=== PATIENT | female | born 1960 | race Two or more races ===

== ENCOUNTER 2020-06-15 17:05 | Inpatient (IN) | payer MEDICAID, OTHER ==
[~2020-06-15] VITALS: Ht 149.9 cm; Wt 67.2 kg
[2020-06-15] MEDS ORDERED: DOXYCYCLINE 100MG/250ML 250 ML IV ONE (20:00)
[2020-06-15] MEDS ORDERED: SODIUM CHLORIDE 0.9% 500 ML IV ONE ×2 (20:00)
[2020-06-15] MEDS ORDERED: DexAMETHasone SOD PHOS 10MG/1ML VIAL INJ IV ONE (20:00)
[2020-06-15 21:23] LABS: Basophils # (auto) 0 10 ^3/uL (0-0.2); Basophils % (auto) 0.3 % (0.0-2.0); Eosinophils # (auto) 0.1 10 ^3/uL (0-0.8); Eosinophils % (auto) 1.3 % (0.0-7.0); Hematocrit 31.8 % (36.0-46.0); Hemoglobin 11.2 g/dL (12.2-16.2); Lymphocytes # (auto) 0.6 10 ^3/uL (0.4-5.4); Lymphocytes % (auto) 8.8 % (10.0-50.0); Mean Corpuscular Hemoglobin 37.2 pg (28.0-32.0); Mean Corpuscular Hgb Conc. 35.3 g/dL (32.0-36.0); Mean Corpuscular Volume 105.5 fL (80.0-100.0); Monocytes # (auto) 0.3 10 ^3/uL (0-1.3); Monocytes % (auto) 4.4 % (0.0-12.0); Neutrophils # (auto) 6.1 10 ^3/uL (1.6-8.6); Neutrophils % (auto) 85.2 % (37.0-80.0); Nucleated Red Blood Cells % 0.3 %; Red Blood Cells 3.01 10^6/uL (4.0-5.20); Red Cell Distribution Width 14.6 % (11.8-14.3); White Blood Cell 7.2 10^3/uL (4.4-10.8)
[2020-06-15 21:30] LABS: Albumin 3.2 g/dL (3.4-5.0); Calcium 7.8 mg/dL (8.5-10.1); Potassium 3.7 mmol/L (3.5-5.1)
[2020-06-15 21:33] LABS: BUN/Creatinine Ratio 16.4; Bilirubin, Total 2.3 mg/dL (0.2-1.0); Total Protein 8.2 g/dL (6.4-8.2)
[2020-06-15 22:35] LABS: INR 1.13 (0.9-1.15); Partial Thromboplastin Time 31.7 sec (23.0-31.2)
[2020-06-16] MEDS ORDERED: TEMAZEPAM 15 MG CAP PO PRN (02:30)
[2020-06-16] MEDS ORDERED: MORPHINE SULFATE INJECTION 2 MG/ML SYRG IV PRN (02:30)
[2020-06-16] MEDS ORDERED: ACETAMINOPHEN 500 MG TAB PO PRN (02:30)
[2020-06-16] MEDS ORDERED: NITROGLYCERIN 0.4 MG SL TAB SL PRN (02:30)
[2020-06-16] MEDS ORDERED: ONDANSETRON HCL 4 MG/2 ML VIAL IV PRN (02:30)
[2020-06-16] MEDS ORDERED: SODIUM CHLORIDE 0.9% 1,000 ML IV SCH (02:30)
[2020-06-16] MEDS: DexAMETHasone SOD PHOS 10MG/1ML VIAL INJ IV SCH (09:58)
[2020-06-16] MEDS: ZINC SULFATE 220mg CAP or TAB PO SCH (09:58)
[2020-06-16] MEDS: PANTOPRAZOLE 40 MG TAB PO SCH (09:58)
[2020-06-16] MEDS: ASCORBIC ACID 1,000 MG TAB PO SCH (09:59)
[2020-06-16] MEDS: CHOLECALCIFEROL (VITD3) 2,000 UNIT CAP/TAB PO SCH (09:59)
[2020-06-16] MEDS ORDERED: AZITHROMYCIN 500MG/ 250ML 250 ML IV SCH (10:00)
[2020-06-16] MEDS ORDERED: ENOXAPARIN SOD 40 MG/0.4 ML SYRINGE SC SCH (10:00)
[2020-06-16] MEDS ORDERED: AZITHROMYCIN 500MG/ 250ML 250 ML IV ONE (14:15)
[2020-06-16] MEDS ORDERED: POTASSIUM CHL 10 Meq TABLET PO ONE (14:15)
[2020-06-16] MEDS ORDERED: cefTRIAXone 1GM/50ML D5W 50 ML IV ONE (14:15)
[2020-06-16] MEDS ORDERED: FUROSEMIDE 20 MG/2 ML VIAL IV ONE (14:15)
[2020-06-16] MEDS ORDERED: REMDESIVIR PER PHARMACY 0 ML IV SCH (14:30)
[2020-06-16] MEDS ORDERED: REMDESIVIR 200 MG in NS 210ml LOADING DOSE ADULT IV ONE (17:00)
[2020-06-16] MEDS: ENOXAPARIN SOD 40 MG/0.4 ML SYRINGE SC SCH (22:00)
[2020-06-16 23:22] VITALS: BP 108/59
[2020-06-17 00:52] VITALS: BP 108/59
[2020-06-17] MEDS ORDERED: MULT-1058 PO (03:19)
[2020-06-17 08:00] VITALS: BP 100/55
[2020-06-17 08:53] LABS: Basophils # (auto) 0.1 10 ^3/uL (0-0.2); Eosinophils # (auto) 0 10 ^3/uL (0-0.8); Eosinophils % (auto) 0.1 % (0.0-7.0); Lymphocytes # (auto) 0.7 10 ^3/uL (0.4-5.4); Red Cell Distribution Width 14.9 % (11.8-14.3); White Blood Cell 9.9 10^3/uL (4.4-10.8)
[2020-06-17 08:55] LABS: Basophils % (auto) 0.5 % (0.0-2.0); Hematocrit 29.8 % (36.0-46.0); Lymphocytes % (auto) 6.8 % (10.0-50.0); Mean Corpuscular Hemoglobin 35.9 pg (28.0-32.0); Mean Corpuscular Hgb Conc. 33.7 g/dL (32.0-36.0); Mean Corpuscular Volume 106.4 fL (80.0-100.0); Monocytes # (auto) 0.4 10 ^3/uL (0-1.3); Monocytes % (auto) 4.1 % (0.0-12.0); Neutrophils # (auto) 8.7 10 ^3/uL (1.6-8.6); Neutrophils % (auto) 88.5 % (37.0-80.0)
[2020-06-17] MEDS: ASCORBIC ACID 1,000 MG TAB PO SCH (09:06)
[2020-06-17] MEDS: CHOLECALCIFEROL (VITD3) 2,000 UNIT CAP/TAB PO SCH (09:06)
[2020-06-17] MEDS: ZINC SULFATE 220mg CAP or TAB PO SCH (09:06)
[2020-06-17] MEDS: ENOXAPARIN SOD 40 MG/0.4 ML SYRINGE SC SCH ×2 (09:06→21:57)
[2020-06-17] MEDS: PANTOPRAZOLE 40 MG TAB PO SCH (09:06)
[2020-06-17] MEDS: POTASSIUM CHL 10 Meq TABLET PO SCH (09:07)
[2020-06-17] MEDS: cefTRIAXone 1GM/50ML D5W 50 ML IV SCH (09:07)
[2020-06-17] MEDS: FUROSEMIDE 20 MG/2 ML VIAL IV SCH (09:07)
[2020-06-17] MEDS: DexAMETHasone SOD PHOS 10MG/1ML VIAL INJ IV SCH (09:07)
[2020-06-17 09:27] LABS: Potassium 3.9 mmol/L (3.5-5.1)
[2020-06-17 09:40] LABS: Albumin 2.7 g/dL (3.4-5.0); Bilirubin, Total 1.5 mg/dL (0.2-1.0); Calcium 7.6 mg/dL (8.5-10.1); Magnesium 2.8 mg/dL (1.6-2.6); Total Protein 7.3 g/dL (6.4-8.2)
[2020-06-17] MEDS: AZITHROMYCIN 500MG/ 250ML 250 ML IV SCH (10:08)
[2020-06-17] MEDS: REMDESIVIR 100 MG in SODIUM CHL 0.9% 250 ML IV SCH (15:04)
[2020-06-17 16:00] VITALS: BP 107/65
[2020-06-17] MEDS: CALCIUM CARB 500 MG CHEW TAB PO SCH (17:53)
[2020-06-17] MEDS: ATORVASTATIN 20 MG TAB PO SCH (21:57)
[2020-06-18] VITALS: BP 113/69
[2020-06-18 08:00] VITALS: BP 104/58
[2020-06-18] MEDS: AZITHROMYCIN 500MG/ 250ML 250 ML IV SCH (10:00)
[2020-06-18] MEDS: CALCIUM CARB 500 MG CHEW TAB PO SCH ×3 (10:37→17:24)
[2020-06-18] MEDS: FUROSEMIDE 20 MG/2 ML VIAL IV SCH (10:37)
[2020-06-18] MEDS: cefTRIAXone 1GM/50ML D5W 50 ML IV SCH (10:37)
[2020-06-18] MEDS: DexAMETHasone SOD PHOS 10MG/1ML VIAL INJ IV SCH (10:37)
[2020-06-18] MEDS: ENOXAPARIN SOD 40 MG/0.4 ML SYRINGE SC SCH ×2 (10:38→22:31)
[2020-06-18] MEDS: CHOLECALCIFEROL (VITD3) 2,000 UNIT CAP/TAB PO SCH (10:38)
[2020-06-18] MEDS: ZINC SULFATE 220mg CAP or TAB PO SCH (10:38)
[2020-06-18] MEDS: PANTOPRAZOLE 40 MG TAB PO SCH (10:38)
[2020-06-18] MEDS: ASPirin 81 mg TAB PO SCH (10:38)
[2020-06-18] MEDS: POTASSIUM CHL 10 Meq TABLET PO SCH (10:38)
[2020-06-18] MEDS: ASCORBIC ACID 1,000 MG TAB PO SCH (10:38)
[2020-06-18] MEDS: REMDESIVIR 100 MG in SODIUM CHL 0.9% 250 ML IV SCH (15:37)
[2020-06-18 16:00] VITALS: BP 113/69
[2020-06-18] MEDS: ATORVASTATIN 20 MG TAB PO SCH (22:31)
[2020-06-19] VITALS: BP 114/60
[2020-06-19 08:00] VITALS: BP 125/64
[2020-06-19] MEDS: CALCIUM CARB 500 MG CHEW TAB PO SCH ×3 (08:00→17:07)
[2020-06-19 08:28] LABS: BUN/Creatinine Ratio 22.3; Calcium 7.7 mg/dL (8.5-10.1); Potassium 3.8 mmol/L (3.5-5.1)
[2020-06-19 08:30] LABS: INR 1.26 (0.9-1.15)
[2020-06-19 08:38] LABS: Albumin 2.8 g/dL (3.4-5.0); Bilirubin, Direct 1.1 mg/dL (0-0.2); Bilirubin, Total 1.5 mg/dL (0.2-1.0); Total Protein 7.4 g/dL (6.4-8.2)
[2020-06-19 08:40] LABS: Bilirubin, Total 1.4 mg/dL (0.2-1.0); Total Protein 7.4 g/dL (6.4-8.2)
[2020-06-19] MEDS: ALBUTEROL SULF HFA 90MCG INH 200DOSE IN PRN ×2 (09:01→21:52)
[2020-06-19] MEDS: cefTRIAXone 1GM/50ML D5W 50 ML IV SCH (09:56)
[2020-06-19] MEDS: ZINC SULFATE 220mg CAP or TAB PO SCH (09:56)
[2020-06-19] MEDS: ASPirin 81 mg TAB PO SCH (09:56)
[2020-06-19] MEDS: FUROSEMIDE 20 MG/2 ML VIAL IV SCH (09:56)
[2020-06-19] MEDS: DexAMETHasone SOD PHOS 10MG/1ML VIAL INJ IV SCH (09:56)
[2020-06-19] MEDS: CHOLECALCIFEROL (VITD3) 2,000 UNIT CAP/TAB PO SCH ×2 (09:57→10:00)
[2020-06-19] MEDS: ENOXAPARIN SOD 40 MG/0.4 ML SYRINGE SC SCH ×2 (09:57→22:00)
[2020-06-19] MEDS: PANTOPRAZOLE 40 MG TAB PO SCH (09:57)
[2020-06-19] MEDS: POTASSIUM CHL 10 Meq TABLET PO SCH (09:57)
[2020-06-19] MEDS: ASCORBIC ACID 1,000 MG TAB PO SCH (09:57)
[2020-06-19] MEDS: AZITHROMYCIN 500MG/ 250ML 250 ML IV SCH (11:38)
[2020-06-19] MEDS: REMDESIVIR 100 MG in SODIUM CHL 0.9% 250 ML IV SCH (15:53)
[2020-06-19 16:00] VITALS: BP 115/67
[2020-06-19] MEDS: ATORVASTATIN 20 MG TAB PO SCH (22:00)
[2020-06-20] VITALS: BP 103/64
[2020-06-20] MEDS: ALBUTEROL SULF HFA 90MCG INH 200DOSE IN PRN ×2 (06:16→20:20)
[2020-06-20 07:21] LABS: Basophils # (auto) 0 10 ^3/uL (0-0.2); Basophils % (auto) 0.2 % (0.0-2.0); Eosinophils # (auto) 0 10 ^3/uL (0-0.8); Monocytes # (auto) 0.5 10 ^3/uL (0-1.3); Nucleated Red Blood Cells % 0.2 %; Red Cell Distribution Width 15.1 % (11.8-14.3)
[2020-06-20 07:24] LABS: Hematocrit 32.9 % (36.0-46.0); Hemoglobin 11.2 g/dL (12.2-16.2); Lymphocytes % (auto) 12.3 % (10.0-50.0); Mean Corpuscular Hemoglobin 35.8 pg (28.0-32.0); Mean Corpuscular Hgb Conc. 34.2 g/dL (32.0-36.0); Mean Corpuscular Volume 104.8 fL (80.0-100.0); Monocytes % (auto) 6.3 % (0.0-12.0); Neutrophils # (auto) 6.5 10 ^3/uL (1.6-8.6); Neutrophils % (auto) 81.2 % (37.0-80.0); Red Blood Cells 3.14 10^6/uL (4.0-5.20)
[2020-06-20 08:00] VITALS: BP 121/59
[2020-06-20] MEDS: CALCIUM CARB 500 MG CHEW TAB PO SCH ×3 (08:00→18:00)
[2020-06-20 08:17] LABS: Albumin 3.1 g/dL (3.4-5.0); BUN/Creatinine Ratio 24.8
[2020-06-20 08:20] LABS: Bilirubin, Total 1.2 mg/dL (0.2-1.0); Total Protein 7.3 g/dL (6.4-8.2)
[2020-06-20] MEDS: cefTRIAXone 1GM/50ML D5W 50 ML IV SCH (09:11)
[2020-06-20] MEDS: ZINC SULFATE 220mg CAP or TAB PO SCH (09:26)
[2020-06-20] MEDS: DexAMETHasone SOD PHOS 10MG/1ML VIAL INJ IV SCH (09:26)
[2020-06-20] MEDS: ASPirin 81 mg TAB PO SCH (09:26)
[2020-06-20] MEDS: PANTOPRAZOLE 40 MG TAB PO SCH (09:26)
[2020-06-20] MEDS: ASCORBIC ACID 1,000 MG TAB PO SCH (09:27)
[2020-06-20] MEDS: CHOLECALCIFEROL (VITD3) 2,000 UNIT CAP/TAB PO SCH (09:27)
[2020-06-20] MEDS: POTASSIUM CHL 10 Meq TABLET PO SCH (09:27)
[2020-06-20] MEDS: FUROSEMIDE 20 MG/2 ML VIAL IV SCH (09:29)
[2020-06-20] MEDS: AZITHROMYCIN 500MG/ 250ML 250 ML IV SCH (10:14)
[2020-06-20] MEDS: ENOXAPARIN SOD 40 MG/0.4 ML SYRINGE SC SCH ×2 (12:46→22:22)
[2020-06-20] MEDS ORDERED: BUDE2SUS3 IN (14:31)
[2020-06-20] MEDS ORDERED: ALBUAER3 IN (14:31)
[2020-06-20] MEDS ORDERED: ASCO10003 PO (14:31)
[2020-06-20] MEDS ORDERED: CHOL1CAP47 PO (14:31)
[2020-06-20] MEDS ORDERED: ASPI-378 PO (14:34)
[2020-06-20] MEDS ORDERED: DOXY-286 PO (14:34)
[2020-06-20] MEDS ORDERED: PANT40TA2 PO (14:34)
[2020-06-20] MEDS ORDERED: DEX4T PO (14:34)
[2020-06-20] MEDS ORDERED: ZINC220T6 PO (14:34)
[2020-06-20 16:00] VITALS: BP 110/61
[2020-06-20] MEDS: REMDESIVIR 100 MG in SODIUM CHL 0.9% 250 ML IV SCH (18:00)
[2020-06-21] VITALS: BP 107/63
[2020-06-21] MEDS: CALCIUM CARB 500 MG CHEW TAB PO SCH ×2 (07:58→12:00)
[2020-06-21 08:00] VITALS: BP 117/62
[2020-06-21] MEDS: cefTRIAXone 1GM/50ML D5W 50 ML IV SCH (08:09)
[2020-06-21] MEDS: ASCORBIC ACID 1,000 MG TAB PO SCH (10:00)
[2020-06-21] MEDS: PANTOPRAZOLE 40 MG TAB PO SCH (10:00)
[2020-06-21] MEDS: ZINC SULFATE 220mg CAP or TAB PO SCH (10:00)
[2020-06-21] MEDS: AZITHROMYCIN 500MG/ 250ML 250 ML IV SCH (10:00)
[2020-06-21] MEDS: CHOLECALCIFEROL (VITD3) 2,000 UNIT CAP/TAB PO SCH (10:00)
[2020-06-21] MEDS: DexAMETHasone SOD PHOS 10MG/1ML VIAL INJ IV SCH (10:32)
[2020-06-21] MEDS: FUROSEMIDE 20 MG/2 ML VIAL IV SCH (10:34)
[2020-06-21] MEDS: ASPirin 81 mg TAB PO SCH (10:35)
[2020-06-21] MEDS: ENOXAPARIN SOD 40 MG/0.4 ML SYRINGE SC SCH (10:35)
[2020-06-21] MEDS: POTASSIUM CHL 10 Meq TABLET PO SCH (10:35)
[2020-06-21 16:20] VITALS: BP 105/59
[2020-06-23 10:21] LABS: Hepatitis B Surface Antibody Negative
[2020-06-23 10:47] LABS: Hepatitis A Total Antibody Positive
[2020-06-23 12:21] LABS: Hepatitis B Core Total AB Negative; Hepatitis B Surface Antigen Negative (Negative); Hepatitis C Antibody Negative (Negative)
== END 2020-06-21 17:00 | disposition home or self-care (01) | DRG 720 ==
LOC: ER 17:05 → TELE 17:06 → TELE-WESTW 06-16 23:20
PROVIDERS: ADMIT Nurse Practitioner; ATTEND Internal Medicine
PROC: XW033E5 Introduction of Remdesivir Anti-infective into Peripheral Vein, Percutaneous Approach, New Technology Group 5 (ICD-10-PCS; principal; 2020-06-16)
DX: A41.89 Other specified sepsis (principal); U07.1 COVID-19; J96.01 Acute respiratory failure with hypoxia; N17.0 Acute kidney failure with tubular necrosis; J12.82 Pneumonia due to coronavirus disease 2019; E66.9 Obesity, unspecified; N18.9 Chronic kidney disease, unspecified; D68.69 Other thrombophilia; K74.60 Unspecified cirrhosis of liver; I12.9 Hypertensive chronic kidney disease with stage 1 through stage 4 chronic kidney disease, or unspecified chronic kidney disease; D63.8 Anemia in other chronic diseases classified elsewhere; Z85.3 Personal history of malignant neoplasm of breast; Z90.11 Acquired absence of right breast and nipple; Z68.29 Body mass index [BMI] 29.0-29.9, adult; R74.01 Elevation of levels of liver transaminase levels; E78.5 Hyperlipidemia, unspecified; D89.839 Cytokine release syndrome, grade unspecified
CPT/HCPCS: 36415; 36600; 71045; 76700; 80053; 80076; 82306; 82728; 82805; 83605; 83615; 83735; 84443; 85025; 85379; 85610; 85730; 86141; 86704; 86706; 86708; 86803; 86850; 86900; 86901; 87040; 87340; 87426; 93005; 93970; 94640; 96365; 96366; 96367; 96372; 96375; 97163; G0378; J0696; J1100; J3490

== ENCOUNTER 2024-11-22 19:26 | Inpatient (IN) | payer MEDICAID, MEDICARE ==
[~2024-11-22] VITALS: Ht 147.3 cm; Wt 83.7 kg
[~2024-11-22 19:26] MED LIST: ALBUAER3 IN; ASCO10003 PO; ASPI-378 PO; BUDE2SUS3 IN; CHOL1CAP47 PO; DEX4T PO; DOXY-286 PO; MULT-1058 PO; PANT40TA2 PO; ZINC220T6 PO
--- NOTE | 2024-11-22 20:03 | ED.PDOC ---
History of Present Illness HPI Comments 64 y/o obese F is [id number] and daughter for c/o ALOC. Per daughter, patient is reported to have been found altered, this evening, after last being seen normal at around 1700. She is stated to only be orientated to her person for the past 3 hours prior to arrival. Patient has a history of AOCD, LUBA, HTN, PNA secondary to Covid19, acute hypoxic respiratory failure, liver cirrhosis and breast cancer s/p right mastectomy. She has also been dealing with diarrhea and having poor appetite since yesterday and this morning, respectively. No prior history of similar symptoms or CVA in addition to any current medication use endorsed. Patient has no associated chest pain, shortness of breath, vision or speech changes, facial droop, fever, or chills. Chief Complaint: ALOC Time Seen by MD: 19:45 Primary Care Provider: ANA Reviewed Notes: Nurses Notes, Medications, Allergies Allergies: Coded Allergies: NO KNOWN ALLERGIES (Unverified , 06/15/20) Home Meds Active Scripts Aspirin (RICK ASPIRIN EC LOW DOSE) 81 Mg Tab, 1 TAB PO DAILY, #30 TAB Prov:KAYODE DUMONT MD 06/20/20 Doxycycline Hyclate (DOXYCYCLINE HYCLATE) 100 Mg Tab, 1 TAB PO BID, #14 TAB Prov:KAYODE DUMONT MD 06/20/20 Zinc Sulfate (Zinc Sulfate) 220 Mg Tab, 220 MG PO DAILY, #14 TAB Prov:KAYODE DUMONT MD 06/20/20 Pantoprazole Sodium Sesquihydr (Protonix) 40 Mg Tab, 40 MG PO DAILY, #30 TAB Prov:KAYODE DUMONT MD 06/20/20 Dexamethasone (Decadron) 4 Mg Tb, 4 TAB PO DAILY, #8 TAB Decadron 4mg po daily for 5 days followed by 2mg po daily for 5 days Prov:KAYODE DUMONT MD 06/20/20 Budesonide (Inhalation) (Budesonide) 1 Mg/2 Ml Mica, 360 MCG IN BID for 14 Days, #1 INHALER Prov:KAYODE DUMONT MD 06/20/20 Albuterol Sulfate (VENTOLIN MDI) 90 Mcg Ih, 90 MCG IN Q6HP PRN for 30 Days, #1 INH Prov:KAYODE DUMONT MD 06/20/20 Cholecalciferol (Vitamin D3 Super Strength) 2,000 Unit Cap, 4000 UNIT PO DAILY, #30 CAP Prov:KAYODE DUMONT MD 06/20/20 Ascorbic Acid (Gnp Vitamin C W/Itzel Hips) 1,000 Mg Tab, 1000 MG PO DAILY, #30 TAB Prov:KAYODE DUMONT MD 06/20/20 Reported Medications Multiple Vitamins W/ Minerals (Multivitamin) 1 Tab Tab, 1 TAB PO DAILY, TAB 06/17/20 Information Source: Relative (Child), Spouse Mode of Arrival: Wheelchair Severity: Moderate Timing: Hours Duration: Since onset Prehospital treatment: None Review of Systems: Unable to obtain due to altered mental status Vital Signs Vital Signs Date Time Temp Pulse Resp B/P (MAP) Pulse Ox O2 Delivery O2 Flow Rate FiO2 11/22/24 22:44 60 12 96 Room Air* 0 21 11/22/24 22:01 97.5 125/65 (85) 97.5 Physical Exam General: Awake, alert and oriented. No acute distress. Skin: Skin in warm, dry and intact. Appropriate color for ethnicity. HEENT: The head is normocephalic and atraumatic. Conjunctivae are clear without exudates or hemorrhage. Sclera is non-icteric. EOM are intact. No signs of nystagmus. Eyelids are normal in appearance without swelling or lesions. Oral mucosa is pink and moist Neck: The neck is supple with normal range of motion. No JVD. Cardiac: Heart rate and rhythm are normal. No murmurs, gallops, or rubs are auscultated. Respiratory: No signs of respiratory distress. Lung sounds are clear in all lobes bilaterally without rales, rhonchi, or wheezes. Abdominal: Abdomen is soft, non-tender without distention, guarding or rigidity. Bowel sounds are present and normoactive in all four quadrants. Extremities: Upper and lower extremities are atraumatic in appearance without deformity or edema. Neurological: Speech is clear, without facial asymmetry or upper or lower extremity drift; patient has difficulty following commands; patient is awake, alert and oriented to person only. Psychiatric: Appropriate mood and affect. Good judgement and insight. Past Medical History PAST MEDICAL HISTORY: Anemia, Cancer (Breast cancer -right breast, in remission status post right mastectomy), HTN, Liver (Liver cirrhosis) Past Medical History (Other): Morbid obesity Pneumonia secondary to COVID-19 Acute hypoxic respiratory failure LUBA Surgical History (Other): Right mastectomy [employer]OSING SPECIALIST History: Denies all [employer]IST Hx Family History Family History: Reviewed,noncontributory to illness Social History Smoker: Non-Smoker Alcohol: Denies ETOH Use Drugs: Denies Drug Use Lives In: Home Was a procedure done? Was a procedure done?: No Differential Dx Considerations may include: Differential diagnosis considered includes but not limited to intracranial hemorrhage, stroke, head injury, seizure, metabolic disturbance, electrolyte imbalance, infection, substance intoxication, psychiatric cause, other systemic illness, other X-Ray, Labs, Meds, VS Vital Signs Date Time Temp Pulse Resp B/P (MAP) Pulse Ox O2 Delivery O2 Flow Rate FiO2 11/22/24 22:44 60 12 96 Room Air* 0 21 11/22/24 22:01 97.5 62 16 125/65 (85) 99 97.5 11/22/24 19:38 99.1 75 16 139/66 (90) 97 99.1 Lab Test 11/22/24 20:45 11/22/24 20:43 11/22/24 19:46 Range/Units White Blood Count 5.7 4.4-10.8 10^3/uL Red Blood Count 3.22 L 4.0-5.20 10^6/uL Hemoglobin 11.7 L 12.2-16.2 g/dL Hematocrit 34.3 L 36.0-46.0 % Mean Corpuscular Volume 106.4 H 80.0-100.0 fL Mean Corpuscular Hemoglobin 36.4 H 28.0-32.0 pg Mean Corpuscular Hemoglobin Concent 34.2 32.0-36.0 g/dL Red Cell Distribution Width 15.1 H 11.8-14.3 % Platelet Count 64 L 140-450 10^3/uL Mean Platelet Volume 11.9 H 6.9-10.8 fL Neutrophils (%) (Auto) 59.1 37.0-80.0 % Lymphocytes (%) (Auto) 28.5 10.0-50.0 % Monocytes (%) (Auto) 8.4 0.0-12.0 % Eosinophils (%) (Auto) 2.6 0.0-7.0 % Basophils (%) (Auto) 1.4 0.0-2.0 % Neutrophils # (Auto) 3.4 1.6-8.6 10 ^3/uL Lymphocytes # (Auto) 1.6 0.4-5.4 10 ^3/uL Monocytes # (Auto) 0.5 0-1.3 10 ^3/uL Eosinophils # (Auto) 0.1 0-0.8 10 ^3/uL Basophils # (Auto) 0.1 0-0.2 10 ^3/uL Nucleated Red Blood Cells 0.0 % Platelet Estimate Decreased Anisocytosis (manual) Slight Macrocytosis Moderate Sodium Level 144 136-145 mmol/L Potassium Level 4.2 3.5-5.1 mmol/L Chloride Level 111 H 98-107 mmol/L Carbon Dioxide Level 22 20-31 mmol/L Anion Gap 11 5-15 Blood Urea Nitrogen 15 9-23 mg/dL Creatinine 1.21 H 0.550-1.02 mg/dL Glomerular Filtration Rate Calc 50 >90 mL/min BUN/Creatinine Ratio 12.4 10.0-20.0 Serum Glucose 118 H 74-106 mg/dL Calcium Level 9.9 8.7-10.4 mg/dL Total Bilirubin 1.8 H 0.2-1.0 mg/dL Aspartate Amino Transferase (AST) 71 H 13-40 U/L Alanine Aminotransferase (ALT) 31 7-40 U/L Alkaline Phosphatase 130 H 46-116 U/L Ammonia 180 *H 11-32 umol/L Total Protein 7.9 5.7-8.2 g/dL Albumin 4.1 3.2-4.8 g/dL Prothrombin Time 12.6 H 9.3-11.8 sec Prothrombin Time INR 1.21 H 0.9-1.15 Activated Partial Thromboplast Time 35.1 H 24.5-34.5 SEC Lipase 35 12-53 U/L POC Glucose 118 H 70-106 mg/dl Current Medications Medications (Trade) Dose Ordered Sig/Calin Route Start Time Stop Time Status Last Admin Sodium Chloride 1,000 ml @ 1,000 mls/hr Q1H ONCE IV 11/22/24 20:00 11/22/24 20:59 DC 11/22/24 22:[address] [address] Ph: [phone] DIAGNOSTIC IMAGING Diagnostic Imaging Report : [id number] Signed PATIENT: RUSH JAIMES ACCT: [id number] UNIT: [id number] : 1960 LOC: ER ROOM / BED: / AGE / SEX: 64 / F ADM STATUS: REG ER SERVICE 50 ORDERING PHYSICIAN: EPI EDWARDS MD PROCEDURE(s): HWOCT - HEAD WITHOUT CONTRAST REASON: ams, hx breast ca ORDER NUMBER(s): [id number], ACCESSION NUMBER(s): [id number] CT BRAIN WITHOUT CONTRAST HISTORY: ams, hx breast ca TECHNIQUE: Axial scans were obtained from the skull base through the vertex without contrast. Sagittal and coronal reformats were generated. One or more of the following radiation dose reduction techniques were used for this examination: automated exposure control, adjustment of the mA and/or kV according to patient size, use of iterative reconstruction technique. COMPARISON: None FINDINGS: No acute intracranial hemorrhage or evidence of large vessel territorial infarction identified at this time. A few tiny scattered calcifications noted in the frontotemporal regions and bilateral basal ganglia. No midline shift. The basilar cisterns are patent. York-white differentiation appears relatively preserved. The visualized paranasal sinuses and mastoid air cells are clear. No grossly displaced calvarial abnormalities identified. IMPRESSION: No acute intracranial findings. If there is persistent clinical concern, follow- up MRI may be considered to further evaluate. ATED BY: JAYA VENTURA MD DICTATED DATE/TIME: 11/22/242028 SIGNED BY: JAYA VENTURA MD SIGNED DATE/TIME: 11/22/242028 CC: Time of 1ST Reevaluation: 20:15 Reevaluation 1ST: Unchanged Patient Education/Counseling: Other (Patient is confused) Family Education/Counseling: Other (Need for admission) Departure 1 Departure Time of Disposition: 20:08 Impression: Primary Impression: Altered mental status Additional Impressions: Hyperammonemia Hepatic encephalopathy Disposition: ADMITTED INPATIENT Condition: Stable Comments 64-year-old female with a history of liver cirrhosis/elevated LFTs in the past presented with significant confusion, difficulty following commands, disorientation therefore CMP as well as ammonia levels were ordered. Patient also significantly confused with a history of breast cancer therefore CT of brain without contrast was ordered to rule out recent stroke or metastasis as cause of confusion. Patient admitted to hospitalist service for further treatment, evaluation and monitoring. Extensive evaluation was performed in attempt to identify or rule out: (See differential diagnosis section) The following tests were ordered, and results were reviewed by me and discussed with patient: (See diagnostic results section) The following test were independently interpreted by me: N/A I reviewed and agreed with the following test results read by other providers: CT head without contrast I reviewed the following notes from the pt's past medical encounters: June 15, 2020 encounter for bilateral pneumonia Additional information was gathered from interviewing the following independent historians: Spouse and daughter Discussion of management or test interpretation with external physician/other qualified health hemodialysis patient care specialist: N/A Addressed an acute or chronic illness that poses a threat to life or bodily function: Hepatic encephalopathy, hyperammonemia Decision regarding hospitalization or escalation of hospital level of care: Risk and benefits of admission for further treatment of patient's condition was considered. Due to patient's current clinical condition, high risk of decline and poor outcome if discharged and need for further inpatient management and monitoring, patient will be admitted to the hospital. Drug therapy requiring intensive monitoring for toxicity: N/A Parenteral controlled substances: N/A Decision regarding elective major surgery with identified patient or procedure risk factors: N/A Decision regarding emergency major surgery: N/A Decision not to resuscitate or to de-escalate care because of poor prognosis: N/A Diagnosis or treatment significantly limited by social determinants of health: N/A Critical Care Note Critical Care Time?: No Stability Stability form required: No Heart Score Heart Score: Heart Score Response (Comments) Value History N/A 0 EKG N/A 0 Age N/A 0 Risk Factors N/A 0 Troponin N/A 0 Total 0 I personally scribed for EPI EDWARDS MD ([email or web address]) on 11/22/24 at 20:03. Electronically submitted by Francisco J Mishra ([email or web address]). I personally scribed for EPI EDWARDS MD ([email or web address]) on 11/22/24 at 21:27. Electronically submitted by Francisco J Mishra ([email or web address]). EPI EDWARDS MD Nov 22, 2024 20:03
--- NOTE | 2024-11-22 20:32 | DVH ---
CT BRAIN WITHOUT CONTRAST HISTORY: ams, hx breast ca TECHNIQUE: Axial scans were obtained from the skull base through the vertex without contrast. Sagitta l and coronal reformats were generated. One or more of the following radiation dose reduction technAudigence ues were used for this examination: automated exposure control, adjustment of the mA and/or kV accord ing to patient size, use of iterative reconstruction technique. COMPARISON: None FINDINGS: No acute intracranial hemorrhage or evidence of large vessel territorial infarction identified at thi s time. A few tiny scattered calcifications noted in the frontotemporal regions and bilateral basal g anglia. No midline shift. The basilar cisterns are patent. York-white differentiation appears relatively pr eserved. The visualized paranasal sinuses and mastoid air cells are clear. No grossly displaced calvarial abno rmalities identified. IMPRESSION: No acute intracranial findings. If there is persistent clinical concern, follow-up MRI may be conside red to further evaluate.
[2024-11-22 21:01] LABS: Basophils # (auto) 0.1 10 ^3/uL (0-0.2); Hemoglobin 11.7 g/dL (12.2-16.2); Lymphocytes # (auto) 1.6 10 ^3/uL (0.4-5.4); Mean Corpuscular Volume 106.4 fL (80.0-100.0); Monocytes # (auto) 0.5 10 ^3/uL (0-1.3); Neutrophils # (auto) 3.4 10 ^3/uL (1.6-8.6); White Blood Cell 5.7 10^3/uL (4.4-10.8)
[2024-11-22 21:03] LABS: Basophils % (auto) 1.4 % (0.0-2.0); Eosinophils # (auto) 0.1 10 ^3/uL (0-0.8); Eosinophils % (auto) 2.6 % (0.0-7.0); Hematocrit 34.3 % (36.0-46.0); Lymphocytes % (auto) 28.5 % (10.0-50.0); Mean Corpuscular Hemoglobin 36.4 pg (28.0-32.0); Mean Corpuscular Hgb Conc. 34.2 g/dL (32.0-36.0); Monocytes % (auto) 8.4 % (0.0-12.0); Neutrophils % (auto) 59.1 % (37.0-80.0); Platelet Count (auto) 64 10^3/uL (140-450); Red Blood Cells 3.22 10^6/uL (4.0-5.20); Red Cell Distribution Width 15.1 % (11.8-14.3)
[2024-11-22 21:15] LABS: Alanine Aminotransferase 31 U/L (7-40); Albumin 4.1 g/dL (3.2-4.8); Anion Gap 11 (5-15); BUN/Creatinine Ratio 12.4 (10.0-20.0); Blood Urea Nitrogen 15 mg/dL (9-23); Calcium 9.9 mg/dL (8.7-10.4); Carbon Dioxide 22 mmol/L (20-31); Potassium 4.2 mmol/L (3.5-5.1); Sodium 144 mmol/L (136-145); Total Protein 7.9 g/dL (5.7-8.2)
[2024-11-22 21:50] LABS: Alkaline Phosphatase 130 U/L (46-116); Aspartate Aminotransferase 71 U/L (13-40); Bilirubin, Total 1.8 mg/dL (0.2-1.0); Chloride 111 mmol/L (98-107); Glucose 118 mg/dL (74-106)
[2024-11-22 22:08] LABS: Anisocytosis Slight; Macrocytosis Moderate; Platelet Estimate Decreased
[2024-11-22] MEDS: SODIUM CHLORIDE 0.9% 1,000 ML IV ONE (22:18)
[2024-11-22 22:44] VITALS: PULSE 60; RESP 12; O2SAT 96
--- NOTE | 2024-11-22 23:32 | DVH ---
ULTRASOUND ABDOMEN, LIMITED RIGHT UPPER QUADRANT: REASON FOR EXAM: RUQ Ultrasound, Elevated LFTs COMPARISON: Abdominal ultrasound 06/16/2020 TECHNIQUE: Real-time sector scans in the transverse and longitudinal planes were obtained through th e right upper quadrant of the abdomen. FINDINGS: Evaluation was difficult due to patient body habitus and inability to follow commands. The liver is of normal size. The liver parenchyma is diffusely echogenic. There is hepatopetal flow in the portal vein. There is no intrahepatic nor extrahepatic biliary ductal dilatation. The common bile duct measures 5 mm. There are multiple shadowing stones within the gallbladder. There is no g allbladder wall thickening nor pericholecystic fluid. There is no sonographic Rodriguez's sign. The visualized portion of the pancreas is unremarkable. The right kidney measures 7.2 cm. No hydronephrosis or nephrolithiasis is identified. There is no e vidence of right renal mass or cyst. The visualized portions of the abdominal aorta demonstrate no evidence of aneurysmal dilatation. The visualized inferior vena cava is unremarkable. There is no free fluid identified in the right upper quadrant. IMPRESSION: Cholelithiasis without evidence of acute cholecystitis. No sonographic rodriguez's sign. Diffusely echogenic liver parenchyma. This may be secondary to steatosis or another diffuse hepatic p rocess. Correlate clinically and with liver function tests.
[2024-11-22] MEDS ORDERED: ONDANSETRON HCL 4 MG/2 ML VIAL IV PRN (23:45)
--- NOTE | 2024-11-22 23:58 | DVHHP2 ---
History of Present Illness Reason for Visit: Altered mental status History of Present Illness 64-year-old female presents for evaluation of altered mental status. Patient with a history of liver cirrhosis presents with a one day history of worsening confusion. Patient's assessment and was at the bedside reports patient compla ining of nausea and vomiting yesterday. Today patient became confused. No headache or unilateral weakness. No other acute complaints. Past Medical History Breast cancer on remission, liver cirrhosis, hypertension, chronic kidney dis ease Past Surgical History Right mastectomy Family History Noncontributory Smoke: No ALCOHOL: none Drugs: None Lives: with Family Review of Systems Review of Systems Review of systems are currently negative otherwise addressed in HPI. Allergies: Coded Allergies: NO KNOWN ALLERGIES (Unverified , 06/15/20) Medications Current Medications Medications Dose Ordered Sig/Calin Route Start Time Stop Time Status Last Admin Dose Admin Lactulose 30 ml Q6HR PO 11/23/24 00:00 UNV Pantoprazole Sodium 40 mg DAILY@0600 PO 11/23/24 06:00 UNV Ondansetron HCl 4 mg Q4HP PRN IV 11/22/24 23:45 UNV Exam Vital Signs Vital Signs Date Time Temp Pulse Resp B/P (MAP) Pulse Ox O2 Delivery O2 Flow Rate FiO2 11/22/24 22:44 60 12 96 Room Air* 0 21 11/22/24 22:01 97.5 125/65 (85) 97.5 Exam Gen: 64-year-old female in mild distress, lethargic Skin: Warm, dry, normal color and texture, no rash. HEENT: Normocephalic atraumatic, mucous membranes moist and pink. Neck: Cervical and supraclavicular nodes normal without enlargement, trachea is midline, thyroid gland is normal without masses. Pulmonary: Clear to auscultation and percussion bilaterally. Cardiac: Regular rate and rhythm. No murmur Abdomen: Soft, nontender, nondistended, bowel sounds present all 4 quadrants, no guarding, no rigidity, no organomegaly. Extremities: No cyanosis, clubbing, no edema Neuro: Cranial nerves II through XII grossly intact, normal affect and speech, no focal motor deficits. Labs/Xrays ORDERING PHYSICIAN: EPI EDWARDS MD PROCEDURE(s): HWOCT - HEAD WITHOUT CONTRAST REASON: ams, hx breast ca ORDER NUMBER(s): [id number], ACCESSION NUMBER(s): [id number] CT BRAIN WITHOUT CONTRAST HISTORY: ams, hx breast ca TECHNIQUE: Axial scans were obtained from the skull base through the vertex without contrast. Sagittal and coronal reformats were generated. One or more of the following radiation dose reduction techniques were used for this examination: automated exposure control, adjustment of the mA and/or kV according to patient size, use of iterative reconstruction technique. COMPARISON: None FINDINGS: No acute intracranial hemorrhage or evidence of large vessel territorial infarction identified at this time. A few tiny scattered calcifications noted in the frontotemporal regions and bilateral basal ganglia. No midline shift. The basilar cisterns are patent. York-white differentiation appears relatively preserved. The visualized paranasal sinuses and mastoid air cells are clear. No grossly displaced calvarial abnormalities identified. IMPRESSION: No acute intracranial findings. If there is persistent clinical concern, follow- up MRI may be considered to further evaluate. RING PHYSICIAN: EPI EDWARDS MD PROCEDURE(s): ABDL - ABDOMEN LIMITED REASON: RUQ Ultrasound, Elevated LFTs ORDER NUMBER(s): [id number], ACCESSION NUMBER(s): [id number] ULTRASOUND ABDOMEN, LIMITED RIGHT UPPER QUADRANT: REASON FOR EXAM: RUQ Ultrasound, Elevated LFTs COMPARISON: Abdominal ultrasound 06/16/2020 TECHNIQUE: Real-time sector scans in the transverse and longitudinal planes were obtained through the right upper quadrant of the abdomen. FINDINGS: Evaluation was difficult due to patient body habitus and inability to follow commands. The liver is of normal size. The liver parenchyma is diffusely echogenic. There is hepatopetal flow in the portal vein. There is no intrahepatic nor extrahe patic biliary ductal dilatation. The common bile duct measures 5 mm. There are multiple shadowing stones within the gallbladder. There is no gallbladder wall thickening nor pericholecystic fluid. There is no sonographic Rodriguez's sign. The visualized portion of the pancreas is unremarkable. The right kidney measures 7.2 cm. No hydronephrosis or nephrolithiasis is identified. There is no evidence of right renal mass or cyst. The visualized portions of the abdominal aorta demonstrate no evidence of an eurysmal dilatation. The visualized inferior vena cava is unremarkable. There is no free fluid identified in the right upper quadrant. IMPRESSION: Cholelithiasis without evidence of acute cholecystitis. No sonographic rodriguez's sign. Diffusely echogenic liver parenchyma. This may be secondary to steatosis or another diffuse hepatic process. Correlate clinically and with liver function tests. Labs Test 11/22/24 20:45 11/22/24 19:46 Range/Units White Blood Count 5.7 4.4-10.8 10^3/uL Red Blood Count 3.22 L 4.0-5.20 10^6/uL Hemoglobin 11.7 L 12.2-16.2 g/dL Hematocrit 34.3 L 36.0-46.0 % Mean Corpuscular Volume 106.4 H 80.0-100.0 fL Mean Corpuscular Hemoglobin 36.4 H 28.0-32.0 pg Mean Corpuscular Hemoglobin Concent 34.2 32.0-36.0 g/dL Red Cell Distribution Width 15.1 H 11.8-14.3 % Platelet Count 64 L 140-450 10^3/uL Mean Platelet Volume 11.9 H 6.9-10.8 fL Neutrophils (%) (Auto) 59.1 37.0-80.0 % Lymphocytes (%) (Auto) 28.5 10.0-50.0 % Monocytes (%) (Auto) 8.4 0.0-12.0 % Eosinophils (%) (Auto) 2.6 0.0-7.0 % Basophils (%) (Auto) 1.4 0.0-2.0 % Neutrophils # (Auto) 3.4 1.6-8.6 10 ^3/uL Lymphocytes # (Auto) 1.6 0.4-5.4 10 ^3/uL Monocytes # (Auto) 0.5 0-1.3 10 ^3/uL Eosinophils # (Auto) 0.1 0-0.8 10 ^3/uL Basophils # (Auto) 0.1 0-0.2 10 ^3/uL Nucleated Red Blood Cells 0.0 % Platelet Estimate Decreased Anisocytosis (manual) Slight Macrocytosis Moderate Sodium Level 144 136-145 mmol/L Potassium Level 4.2 3.5-5.1 mmol/L Chloride Level 111 H 98-107 mmol/L Carbon Dioxide Level 22 20-31 mmol/L Anion Gap 11 5-15 Blood Urea Nitrogen 15 9-23 mg/dL Creatinine 1.21 H 0.550-1.02 mg/dL Glomerular Filtration Rate Calc 50 >90 mL/min BUN/Creatinine Ratio 12.4 10.0-20.0 Serum Glucose 118 H 74-106 mg/dL Calcium Level 9.9 8.7-10.4 mg/dL Total Bilirubin 1.8 H 0.2-1.0 mg/dL Aspartate Amino Transferase (AST) 71 H 13-40 U/L Alanine Aminotransferase (ALT) 31 7-40 U/L Alkaline Phosphatase 130 H 46-116 U/L Ammonia 180 *H 11-32 umol/L Total Protein 7.9 5.7-8.2 g/dL Albumin 4.1 3.2-4.8 g/dL POC Glucose 118 H 70-106 mg/dl Assessment/Plan Assessment/Plan Assessment Hepatic encephalopathy Hyperammonemia Chronic kidney disease Plan Admit the patient to Med surge to the hospitalist Lactulose q.6 hours Resume home medications Continue treatment per orders. Plan discussed with: Patient My Orders Orders - KATYA ZHENG Procedure Category Date Status Time Hepatic Diet DIET 11/23/24 Transmitted (50gmpro,2gmna) Breakfast Lactulose Oral PHA 11/23/24 Transmitted 00:00 PTPTT LAB 11/22/24 Transmitted 23:44 Pantoprazole Tablet PHA 11/23/24 Transmitted (Protonix Tablet) 06:00 Lipase LAB 11/22/24 Transmitted 23:44 Admit ADMIT 11/22/24 Transmitted 23:44 Ondansetron Hcl PHA 11/22/24 Transmitted (Zofran) 23:45 Comprehensive LAB 11/23/24 Verified Metabolic Panel 04:00 Condition: Stable [place] 11/22/24 In Process 23:44 Bedrest With Bathroom [place] 11/22/24 In Process Privileg 23:44 Date of Service: Nov 22, 2024 Billing Provider: KATYA ZHENG Common Visit Codes: [id number] INP/OBS CARE (MOD) KATYA ZHENG Nov 22, 2024 23:58
[2024-11-23] MEDS ORDERED: LACTULOSE 20Gm/30ML SOLN PO SCH
[2024-11-23] MEDS: LACTULOSE 20Gm/30ML SOLN PO ONE (00:19)
[2024-11-23 00:22] LABS: INR 1.21 (0.9-1.15); Partial Thromboplastin Time 35.1 SEC (24.5-34.5); Prothrombin Time 12.6 sec (9.3-11.8)
[2024-11-23] MEDS: LACTULOSE 20Gm/30ML SOLN ONE ×2 (03:26→03:27)
[2024-11-23] MEDS: LACTULOSE 10g/15ml SOLN 473ML PR SCH (03:44)
[2024-11-23 05:00] VITALS: BP 109/40; PULSE 62; RESP 18; TEMP 98; O2SAT 91
[2024-11-23] MEDS: PANTOPRAZOLE 40 MG TAB PO SCH (05:08)
[2024-11-23 07:12] LABS: Alanine Aminotransferase 27 U/L (7-40); Albumin 3.9 g/dL (3.2-4.8); Anion Gap 13 (5-15); Blood Urea Nitrogen 15 mg/dL (9-23); Calcium 9.8 mg/dL (8.7-10.4); Carbon Dioxide 20 mmol/L (20-31); Total Protein 7.5 g/dL (5.7-8.2)
[2024-11-23 07:14] LABS: Alkaline Phosphatase 121 U/L (46-116); Aspartate Aminotransferase 64 U/L (13-40); Bilirubin, Total 1.8 mg/dL (0.2-1.0); Chloride 113 mmol/L (98-107); Glucose 122 mg/dL (74-106); Sodium 146 mmol/L (136-145)
[2024-11-23] MEDS ORDERED: LORazepam 2MG/ML-1ML VIAL IM ONE (07:45)
[2024-11-23] MEDS: LORazepam 2MG/ML-1ML VIAL ONE (07:51)
[2024-11-23 08:00] VITALS: PULSE 70; RESP 16; O2SAT 100
[2024-11-23] MEDS: LORazepam 2MG/ML-1ML VIAL IV ONE (08:00)
--- NOTE | 2024-11-23 08:04 | RESUS ---
CODE ASSIST ASSESSSMENT Initial Information Code Assist Date: Nov 23, 2024 Code Assist Time: 07:22 Location of Arrest: [facility] Room # 216b Provider Name CHARLENE Paul Time Notified: 07:22 Time PMD returned call: 07:25 Crash Cart Opened and Supplies: No Situation Staff concerned/worried, speci: Change LOC Situation comment: Increased ALOC, climbed out of bed and unable to follow directions/ simple commands. Patient is combative towards staff. Background Background: DX: Metabolic encephalopathy/ liver disease Assessment Temperature (Fahrenheit): 98.0 Blood Pressure Systolic: 105 Blood Pressure Diastolic: 54 Respiratory Rate: 16 O2 Sat by Pulse Oximetry: 95 Recommendations/Interventions Medications and Responses : ADULT Medications Given: Ativan 1 mg IV MRx1 Route of Administration: IV Outcome Outcome: Problem Resolved Team Members Team Members CHARLENE Sullivan accounting advisory services manager Wilmer accounting advisory services managerAMINTA Palacio RN Marcia Puente Nov 23, 2024 08:03
[2024-11-23 09:00] VITALS: BP 102/56; PULSE 64; RESP 19; TEMP 97.4; O2SAT 94
--- NOTE | 2024-11-23 10:30 | DVHPN2 ---
Progress Note Date Seen: Nov 23, 2024 Medical Necessity Reason Pt with a Central, PICC or Fol: Yes The following are medically ne: Barney Catheter Reason for barney catheter: Strict I&O Subjective Patient reports: No new complaints Review of Systems: HEENT:Normal, CVS:Normal, RESPIRATORY:Normal, GI:Normal, :Normal, MSK:Normal, NEURO:Normal Objective vital signs Vital Sign Date Time Temp Pulse Resp B/P (MAP) Pulse Ox O2 Delivery O2 Flow Rate FiO2 11/23/24 09:00 97.4 64 19 102/56 (71) 94 97.4 11/23/24 02:13 Room Air* 0 21 Total Intake and Output 11/22/24 11/22/24 11/23/24 15:00 23:00 07:00 Intake Total 0 ml Balance 0 ml medications Current Medications Medications Dose Ordered Sig/Calin Route Start Time Stop Time Status Last Admin Dose Admin Pantoprazole Sodium 40 mg DAILY@0600 PO 11/23/24 06:00 Ondansetron HCl 4 mg Q4HP PRN IV 11/22/24 23:45 Lactulose 300 ml Q6HR AR 11/23/24 06:00 11/23/24 03:44 300 ML Examination: GENERAL:Normal, HEENT:Normal, NECK:Normal, LUNGS:Normal, CVS:Normal, ABDOMEN:Normal, MSK:Normal, SKIN:Normal, NEURO:Normal, NEURO:Abnormal (encephalopathy), :Normal laboratory and microbiology Laboratory Tests 11/23/24 06:02 11/22/24 20:45 Test 11/23/24 06:02 Range/Units Serum Glucose 122 H 74-106 mg/dL Problem List/Assessment/Plan Problem List/Assessment/Plan #1 hepatic encephalopathy: ng tube, lactulose, hep panel #2 h/o breast cancer #3 obesity #4 htn #5 thrombocytopenia #6 ckd staqe 3 advance care planning- full code- time spent 19 mins Plan discussed with: Patient, Spouse Date of Service: Nov 23, 2024 Billing Provider: KATYA MYERS MD Common Visit Codes: [id number] INP/OBS CARE(HIGH) Secondary Visit Codes: [id number] CARE PLAN 30 MINUTES KATYA MYERS MD Nov 23, 2024 10:30
[2024-11-23 11:43] LABS: Hepatitis A Ab IgM Negative; Hepatitis B Core IgM Negative (Negative); Hepatitis B Surface Antigen Negative (Negative); Hepatitis C Antibody Negative (Negative)
[2024-11-23] MEDS: cefTRIAXone 1GM/50ML D5W 50 ML IV ONE (12:28)
[2024-11-23] MEDS: PANTOPRAZOLE 40 MG/10 ML VIAL INJ IV ONE (12:35)
[2024-11-23] MEDS: PANTOPRAZOLE 40 MG/10 ML VIAL INJ IV SCH (12:47)
[2024-11-23] MEDS: cefTRIAXone 1GM/50ML D5W 50 ML IV SCH (12:48)
[2024-11-23 13:00] VITALS: BP 112/57; PULSE 59; RESP 19; TEMP 97.3; O2SAT 96
--- NOTE | 2024-11-23 13:23 | DVH ---
EXAM: XY CHEST PORTABLE Indication: aloc Technique: Single frontal view of the chest was obtained Comparison: CHEST PORTABLE on DOS: 06/20/20, CHEST PORTABLE on DOS: 06/17/20, CHEST PORTABLE on DOS: 05/19 FINDINGS: Lines and Tubes: Enteric tube tip projects over the expected region of the stomach. Lungs: No focal consolidation. Pleura: No effusion. No pneumothorax. Cardiomediastinal contours: Unremarkable Bones: No acute osseous abnormality. IMPRESSION: Enteric tube tip projects over the expected region stomach. No acute cardiopulmonary disease.
[2024-11-23] MEDS: LACTULOSE 20Gm/30ML SOLN PO SCH (14:58)
[2024-11-23 17:00] VITALS: BP 139/58; PULSE 60; RESP 19; TEMP 97.6; O2SAT 97
[2024-11-23] MEDS: HALOPERIDOL LACTATE 5 MG/ML INJ VIAL IM ONE (22:50)
[2024-11-24 03:38] LABS: Urine Bacteria None Seen /hpf (None Seen)
[2024-11-24 03:59] LABS: Urine Blood 3+ /uL (Negative); Urine Clarity Turbid (Clear); Urine Color Yellow (Yellow); Urine Mucus FEW (None Seen); Urine Protein, UAD 1+ (Negative); Urine Specific Gravity 1.025 (1.001-1.035); Urine Squamous Epithelial Cell FEW /hpf (<5); Urine Urobilinogen 4 mg/dL (Negative); Urine WBC 24 /HPF (0-5)
[2024-11-24] MEDS: LORazepam 2MG/ML-1ML VIAL IV ONE ×3 (08:56→17:50)
[2024-11-24 09:02] LABS: Basophils # (auto) 0.1 10 ^3/uL (0-0.2); Hemoglobin 10.4 g/dL (12.2-16.2); Lymphocytes # (auto) 1.5 10 ^3/uL (0.4-5.4)
[2024-11-24 09:05] LABS: Basophils % (auto) 1.1 % (0.0-2.0); Eosinophils # (auto) 0.1 10 ^3/uL (0-0.8); Eosinophils % (auto) 1.6 % (0.0-7.0); Hematocrit 30.3 % (36.0-46.0); Lymphocytes % (auto) 20.4 % (10.0-50.0); Mean Corpuscular Hemoglobin 36.9 pg (28.0-32.0); Mean Corpuscular Hgb Conc. 34.4 g/dL (32.0-36.0); Mean Corpuscular Volume 107.1 fL (80.0-100.0); Monocytes # (auto) 0.5 10 ^3/uL (0-1.3); Monocytes % (auto) 6.9 % (0.0-12.0); Neutrophils # (auto) 5.3 10 ^3/uL (1.6-8.6); Red Blood Cells 2.82 10^6/uL (4.0-5.20); Red Cell Distribution Width 15.2 % (11.8-14.3); White Blood Cell 7.5 10^3/uL (4.4-10.8)
[2024-11-24 09:09] LABS: Platelet Count (auto) 50 10^3/uL (140-450)
--- NOTE | 2024-11-24 09:12 | DVH ---
EXAM: XY CHEST XRAY 1 VIEW Indication: ng tube placement Technique: Single frontal view of the chest was obtained Comparison: XY CHEST PORTABLE on DOS: 11/23/24, CHEST PORTABLE on DOS: 06/20/20, CHEST PORTABLE on DOS: , CHEST PORTABLE on DOS: 06/15/20 FINDINGS: Lines and Tubes: Enteric tube in appropriate position. Lungs: No focal consolidation. Mild pulmonary vascular congestion. Pleura: No effusion. No pneumothorax. Cardiomediastinal contours: Unremarkable Bones: No acute osseous abnormality. IMPRESSION: Enteric tube in appropriate position. Mild pulmonary vascular congestion.
[2024-11-24 09:17] LABS: Alanine Aminotransferase 34 U/L (7-40); Albumin 3.8 g/dL (3.2-4.8); Anion Gap 11 (5-15); BUN/Creatinine Ratio 15.9 (10.0-20.0); Blood Urea Nitrogen 21 mg/dL (9-23); Calcium 9.3 mg/dL (8.7-10.4); Carbon Dioxide 22 mmol/L (20-31); Total Protein 7.1 g/dL (5.7-8.2)
[2024-11-24 09:18] LABS: Alkaline Phosphatase 117 U/L (46-116); Aspartate Aminotransferase 110 U/L (13-40); Chloride 116 mmol/L (98-107); Glucose 120 mg/dL (74-106); Sodium 149 mmol/L (136-145)
--- NOTE | 2024-11-24 09:43 | DVH ---
EXAM: XY CHEST XRAY 1 VIEW Indication: NG TUBE PLACEMENT Technique: Single frontal view of the chest was obtained Comparison: XY CHEST XRAY 1 VIEW on DOS: 11/24/24, XY CHEST PORTABLE on DOS: 11/23/24, CHEST PORTABLE on DOS: 06/20/20, CHEST PORTABLE on DOS: 06/17/20, CHEST PORTABLE on DOS: 06/15/20 FINDINGS: Lines and Tubes: Enteric tube tip projects over the expected region of the stomach Lungs: Mild pulmonary vascular congestion. Pleura: No effusion. No pneumothorax. Cardiomediastinal contours: Unremarkable Bones: No acute osseous abnormality. IMPRESSION: Enteric tube in appropriate position. Mild pulmonary vascular congestion.
--- NOTE | 2024-11-24 09:59 | DVHPN2 ---
Progress Note Date Seen: Nov 24, 2024 Medical Necessity Reason Pt with a Central, PICC or Fol: Yes The following are medically ne: Barney Catheter Reason for barney catheter: Strict I&O Subjective Patient reports: No new complaints Review of Systems: HEENT:Normal, CVS:Normal, RESPIRATORY:Normal, GI:Normal, :Normal, MSK:Normal, NEURO:Normal Objective vital signs Vital Sign Date Time Temp Pulse Resp B/P (MAP) Pulse Ox O2 Delivery O2 Flow Rate FiO2 11/24/24 08:00 Room Air* 0 21 11/23/24 17:00 97.6 60 19 139/58 (85) 97 97.6 Total Intake and Output 11/23/24 11/23/24 11/24/24 15:00 23:00 07:00 Intake Total 50 ml 0 ml 0 ml Output Total 400 ml 350 ml Balance 50 ml -400 ml -350 ml medications Current Medications Medications Dose Ordered Sig/Calin Route Start Time Stop Time Status Last Admin Dose Admin Ondansetron HCl 4 mg Q4HP PRN IV 11/22/24 23:45 Pantoprazole Sodium 40 mg DAILY IV 11/24/24 10:00 11/23/24 12:47 40 MG Ceftriaxone Sodium 50 ml @ 100 mls/hr DAILY@09 IV 11/24/24 09:00 11/23/24 12:48 100 MLS/HR Lactulose 30 ml Q6HR NG 11/24/24 12:00 Examination: GENERAL:Normal, HEENT:Normal, NECK:Normal, LUNGS:Normal, CVS:Normal, ABDOMEN:Normal, MSK:Normal, SKIN:Normal, NEURO:Normal, NEURO:Abnormal (ENCEPHALOPATHY, AGITATION), :Normal laboratory and microbiology Laboratory Tests 11/24/24 08:45 Test 11/24/24 08:45 Range/Units Serum Glucose 120 H 74-106 mg/dL Problem List/Assessment/Plan Problem List/Assessment/Plan #1 hepatic encephalopathy: ng tube, lactulose, hep panel, rifaximin #2 h/o breast cancer #3 obesity #4 htn #5 thrombocytopenia #6 ckd staqe 3 #7 hypernatremia: free water long dw daughter- explained plan of care and findings advance care planning- full code- time spent 19 mins Plan discussed with: Patient, Daughter My Orders My Orders Orders - KATYA MYERS MD Procedure Category Date Status Time Npo (Nothing By DIET 11/23/24 Transmitted Mouth) Diet Lunch Pantoprazole PHA 11/24/24 In Process (Protonix) 10:00 Place Ng ORDERS 11/23/24 Transmitted 10:19 Ceftriaxone 1gm/50ml PHA 11/24/24 In Process D5w (Rocephin) 09:00 Urine Bacterial RAFAEL 11/23/24 In Process Culture 10:19 Ammonia LAB 11/24/24 In Process 06:00 Chest Portable XY 11/23/24 Resulted 10:19 Chest Xray 1 View XY 11/24/24 Resulted 00:19 Lactulose Oral PHA 11/24/24 In Process 12:00 Chest Xray 1 View XY 11/24/24 Resulted 09:12 Date of Service: Nov 24, 2024 Billing Provider: KATYA MYERS MD Common Visit Codes: [id number] INP/OBS CARE(HIGH) Secondary Visit Codes: [id number] CARE PLAN 30 MINUTES KATYA MYERS MD Nov 24, 2024 09:59
[2024-11-24] MEDS: THIAMINE 100mg/ml INJ (200mg/2ml VIAL) IV ONE (10:00)
[2024-11-24] MEDS: THIAMINE 100mg/ml INJ (200mg/2ml VIAL) IV SCH (10:00)
[2024-11-24] MEDS: FREE WATER GT SCH (12:00)
[2024-11-24] MEDS ORDERED: LACTULOSE 20Gm/30ML SOLN NG SCH (12:00)
[2024-11-24] MEDS: rifAXIMin 550 MG TAB PO SCH (12:34)
[2024-11-24] MEDS: LACTULOSE 20Gm/30ML SOLN NG SCH (12:34)
[2024-11-24] MEDS: metroNIDAZOLE 500MG/100ML 100 ML IV SCH (14:10)
[2024-11-24] MEDS: D5W/SOD CHL 0.45% 1,000 ML IV SCH (14:10)
[2024-11-24] MEDS ORDERED: MORPHINE SULFATE INJ 2 MG/ml SYRG IV PRN (15:00)
[2024-11-24] MEDS: MORPHINE SULFATE 4 MG/ML SYR/VIAL IV PRN (15:15)
[2024-11-24 20:00] VITALS: PULSE 63; RESP 19; O2SAT 97
[2024-11-24 21:00] VITALS: BP 123/65; PULSE 63; RESP 19; O2SAT 92
[2024-11-25] MEDS: HALOPERIDOL LACTATE 5 MG/ML INJ VIAL IM PRN (00:40)
[2024-11-25 01:00] VITALS: BP 126/67; PULSE 69; RESP 18; TEMP 97.1; O2SAT 97
[2024-11-25 05:00] VITALS: BP 125/77; PULSE 68; RESP 18; TEMP 97.1; O2SAT 99
[2024-11-25 06:04] LABS: Albumin 3.9 g/dL (3.2-4.8); Anion Gap 13 (5-15); BUN/Creatinine Ratio 15.2 (10.0-20.0); Blood Urea Nitrogen 21 mg/dL (9-23); Calcium 9.2 mg/dL (8.7-10.4); Potassium 3.6 mmol/L (3.5-5.1); Total Protein 7.2 g/dL (5.7-8.2)
[2024-11-25 06:05] LABS: Alanine Aminotransferase 50 U/L (7-40); Alkaline Phosphatase 133 U/L (46-116); Aspartate Aminotransferase 207 U/L (13-40); Carbon Dioxide 19 mmol/L (20-31); Chloride 118 mmol/L (98-107); Glucose 137 mg/dL (74-106); Sodium 150 mmol/L (136-145)
[2024-11-25 06:06] LABS: Bilirubin, Total 2.3 mg/dL (0.2-1.0)
[2024-11-25] MEDS: HALOPERIDOL LACTATE 5 MG/ML INJ VIAL ONE (07:23)
--- NOTE | 2024-11-25 07:24 | DVH ---
EXAM: XR Chest, 1 View CLINICAL INDICATION: NG TUBE PLACEMENT TECHNIQUE: Frontal view of the chest. COMPARISON: XY CHEST XRAY 1 VIEW on DOS: 11/24/24, XY CHEST XRAY 1 VIEW on DOS: 11/24/24, XY CHEST PO RTABLE on DOS: 11/23/24, CHEST PORTABLE on DOS: 06/20/20, CHEST PORTABLE on DOS: 06/17/20 FINDINGS: LUNGS AND PLEURAL SPACES: Unremarkable. No consolidation. No pneumothorax. HEART: Unremarkable. No cardiomegaly. MEDIASTINUM: Unremarkable. Normal mediastinal contour. BONES/JOINTS: Unremarkable. No acute fracture. TUBES, LINES AND DEVICES: Enteric tube is in the stomach. OTHER FINDINGS: . IMPRESSION: Enteric tube is in the stomach.
[2024-11-25 09:00] VITALS: BP 118/55; PULSE 57; RESP 17; TEMP 98.4; O2SAT 96
--- NOTE | 2024-11-25 10:15 | DVHPN2 ---
Progress Note Date Seen: Nov 25, 2024 Medical Necessity Reason Pt with a Central, PICC or Fol: Yes The following are medically ne: Barney Catheter Reason for barney catheter: Strict I&O Subjective Patient reports: No new complaints Review of Systems: HEENT:Normal, CVS:Normal, RESPIRATORY:Normal, GI:Normal, :Normal, MSK:Normal, NEURO:Normal Objective vital signs Vital Sign Date Time Temp Pulse Resp B/P (MAP) Pulse Ox O2 Delivery O2 Flow Rate FiO2 11/25/24 05:00 97.1 68 18 125/77 (93) 99 97.1 11/24/24 20:00 Room Air* 0 21 Total Intake and Output 11/24/24 11/24/24 11/25/24 15:00 23:00 07:00 Intake Total 850 ml Output Total 800 ml Balance -800 ml 850 ml medications Current Medications Medications Dose Ordered Sig/Calin Route Start Time Stop Time Status Last Admin Dose Admin Ondansetron HCl 4 mg Q4HP PRN IV 11/22/24 23:45 Pantoprazole Sodium 40 mg DAILY IV 11/24/24 10:00 11/24/24 12:33 40 MG Ceftriaxone Sodium 50 ml @ 100 mls/hr DAILY@09 IV 11/24/24 09:00 11/25/24 09:52 100 MLS/HR Lactulose 30 ml Q4HR NG 11/24/24 10:00 11/25/24 09:52 30 ML Rifaximin 550 mg BID PO 11/24/24 10:00 11/24/24 22:01 550 MG Metronidazole 100 ml @ 100 mls/hr Q8HR IV 11/24/24 14:00 11/25/24 06:21 100 MLS/HR Dextrose/Sodium Chloride 1,000 ml @ 75 mls/hr [id number] IV 11/24/24 10:00 11/24/24 14:10 75 MLS/HR Thiamine HCl 100 mg DAILY IV 11/24/24 10:00 11/25/24 09:52 100 MG Purified Water 100 ml Q6HR GT 11/24/24 12:00 11/24/24 18:00 100 ML Morphine Sulfate 1 mg Q6HP PRN IV 11/24/24 15:00 UNV Morphine Sulfate 1 mg Q6HPRN PRN IV 11/24/24 15:00 11/24/24 22:01 1 MG Examination: GENERAL:Normal, HEENT:Normal, NECK:Normal, LUNGS:Normal, CVS:Normal, ABDOMEN:Normal, ABDOMEN:Abnormal (ng tube), MSK:Normal, SKIN:Normal, NEURO:Normal, :Normal laboratory and microbiology Laboratory Tests 11/25/24 05:07 11/24/24 08:45 Test 11/25/24 05:07 Range/Units Serum Glucose 137 H 74-106 mg/dL Problem List/Assessment/Plan Problem List/Assessment/Plan #1 hepatic encephalopathy: ng tube, lactulose, hep panel, rifaximin #2 h/o breast cancer #3 obesity #4 htn #5 thrombocytopenia #6 ckd staqe 3 #7 hypernatremia: free water, d5w #8 liver cirrhosis ?metabolic long dw daughter- explained plan of care and findings advance care planning- full code- time spent 19 mins Plan discussed with: Patient, Spouse My Orders My Orders Orders - KATYA MYERS MD Procedure Category Date Status Time Morphine Sulfate PHA 11/24/24 In Process Injection 15:00 Free Water PHA 11/25/24 Verified 14:00 Comprehensive LAB 11/26/24 Verified Metabolic Panel 06:00 Ammonia LAB 11/26/24 Verified 06:00 Date of Service: Nov 25, 2024 Billing Provider: KATYA MYERS MD Common Visit Codes: [id number] INP/OBS CARE(HIGH) AKTYA MYERS MD Nov 25, 2024 10:15
[2024-11-25] MEDS: FREE WATER GT SCH (11:57)
[2024-11-25 17:00] VITALS: BP 151/69; PULSE 66; RESP 17; TEMP 98.3; O2SAT 96
[2024-11-25 20:00] VITALS: PULSE 61; RESP 16; O2SAT 97
[2024-11-25 21:00] VITALS: BP 136/63; PULSE 61; RESP 16; TEMP 98.4; O2SAT 97
[2024-11-26 00:42] VITALS: BP 125/63; PULSE 59; RESP 18; TEMP 98.3; O2SAT 97
[2024-11-26 05:00] VITALS: BP 109/48; PULSE 60; RESP 18; TEMP 98.1; O2SAT 99
[2024-11-26 05:36] LABS: Albumin 3.4 g/dL (3.2-4.8); Anion Gap 13 (5-15); BUN/Creatinine Ratio 15.5 (10.0-20.0); Blood Urea Nitrogen 20 mg/dL (9-23); Total Protein 6.5 g/dL (5.7-8.2)
[2024-11-26 05:52] LABS: Alanine Aminotransferase 47 U/L (7-40); Alkaline Phosphatase 125 U/L (46-116); Aspartate Aminotransferase 195 U/L (13-40); Bilirubin, Total 1.8 mg/dL (0.2-1.0); Calcium 8.1 mg/dL (8.7-10.4); Carbon Dioxide 18 mmol/L (20-31); Chloride 115 mmol/L (98-107); Glucose 112 mg/dL (74-106); Potassium 3.1 mmol/L (3.5-5.1); Sodium 146 mmol/L (136-145)
[2024-11-26 08:00] VITALS: RESP 16; O2SAT 96
[2024-11-26] MEDS: PANTOPRAZOLE 40 MG/10 ML VIAL INJ IV SCH (09:24)
--- NOTE | 2024-11-26 10:10 | DVHPN2 ---
Progress Note Date Seen: Nov 26, 2024 Medical Necessity Reason Pt with a Central, PICC or Fol: Yes The following are medically ne: Barney Catheter Reason for barney catheter: Strict I&O Subjective Patient reports: No new complaints Review of Systems: HEENT:Normal, CVS:Normal, RESPIRATORY:Normal, GI:Normal, :Normal, MSK:Normal, NEURO:Normal Objective vital signs Vital Sign Date Time Temp Pulse Resp B/P (MAP) Pulse Ox O2 Delivery O2 Flow Rate FiO2 11/26/24 05:00 98.1 60 18 109/48 (68) 99 98.1 11/25/24 20:00 Room Air* 0 21 Total Intake and Output 11/25/24 11/25/24 11/26/24 15:00 23:00 07:00 Intake Total 1153 ml 1000 ml 100 ml Output Total 600 ml 750 ml Balance 1153 ml 400 ml -650 ml medications Current Medications Medications Dose Ordered Sig/Calin Route Start Time Stop Time Status Last Admin Dose Admin Ondansetron HCl 4 mg Q4HP PRN IV 11/22/24 23:45 Ceftriaxone Sodium 50 ml @ 100 mls/hr DAILY@09 IV 11/24/24 09:00 11/26/24 09:23 100 MLS/HR Lactulose 30 ml Q4HR NG 11/24/24 10:00 11/26/24 09:24 30 ML Rifaximin 550 mg BID PO 11/24/24 10:00 11/24/24 22:01 550 MG Metronidazole 100 ml @ 100 mls/hr Q8HR IV 11/24/24 14:00 11/26/24 06:11 100 MLS/HR Thiamine HCl 100 mg DAILY IV 11/24/24 10:00 11/26/24 09:23 100 MG Morphine Sulfate 1 mg Q6HP PRN IV 11/24/24 15:00 UNV Morphine Sulfate 1 mg Q6HPRN PRN IV 11/24/24 15:00 11/24/24 22:01 1 MG Purified Water 200 ml Q4HR GT 11/25/24 14:00 11/26/24 09:26 200 ML Pantoprazole Sodium 40 mg DAILY IV 11/26/24 10:00 11/26/24 09:24 40 MG Examination: GENERAL:Normal, HEENT:Normal, NECK:Normal, LUNGS:Normal, CVS:Normal, ABDOMEN:Normal, MSK:Normal, SKIN:Normal, NEURO:Normal, :Normal laboratory and microbiology Laboratory Tests 11/26/24 04:52 11/24/24 08:45 Test 11/26/24 04:52 Range/Units Serum Glucose 112 H 74-106 mg/dL Microbiology Date/Time Source Procedure Growth Status 11/24/24 03:30 Urine - [place] Urine Culture - Preliminary Resulted Problem List/Assessment/Plan Problem List/Assessment/Plan #1 hepatic encephalopathy: ng tube, lactulose, hep panel, rifaximin, full liquid diet #2 h/o breast cancer #3 obesity #4 htn #5 thrombocytopenia #6 ckd staqe 3 #7 hypernatremia: free water #8 liver cirrhosis ?metabolic long dw daughter- explained plan of care and findings advance care planning- full code- time spent 19 mins Plan discussed with: Patient, Daughter My Orders My Orders Orders - KATYA MYERS MD Procedure Category Date Status Time Free Water PHA 11/25/24 In Process 14:00 Pantoprazole PHA 11/26/24 In Process (Protonix) 10:00 Potassium Chl Mani PHA 11/26/24 Verified KCL 10:15 Full Liq Diet DIET 11/26/24 Verified Lunch Pt Request For Service PT 11/26/24 Verified 10:05 Basic Metabolic Panel LAB 11/27/24 Verified 06:00 Ammonia LAB 11/27/24 Verified 06:00 Dietary Evaluation Review Comments: 1. Given pt has low GFR, consider Nepro carb steady 240ml PO as nutrition supplement if Pt can tolerate PO feedings. 2. If NG in place, EN/GI accessble, Tube Feeding Nepro @30ml/hr providing 58g Protein 1274 kcal and 523ml free water is recommended. Start feeding at 10ml/hr increase Q6hr until reaching recommended goal rate of 30ml/hr. 3. If NPO>7 days, TPN per Pharmacy is recommended. 4. Reassess in 2-3 days Expected Outcomes/Goals: Gradual wt loss, improved nutrition status. Date of Service: Nov 26, 2024 Billing Provider: KATYA MYERS MD Common Visit Codes: [id number] INP/OBS CARE(HIGH) KATAY MYERS MD Nov 26, 2024 10:10
[2024-11-26] MEDS: POTASSIUM CHLORIDE 40 MEQ, LIDOCAINE 1% (LOCAL ANESTH.) 4 ML in SODIUM CHL 0.9% 250 ML IV ONE (11:24)
[2024-11-26] MEDS ORDERED: HYDROCORTISONE 2.5% TOPICAL CREAM 30GM TUBE TOP ONE (12:00)
[2024-11-26 12:40] VITALS: BP 116/53; PULSE 53; RESP 17; TEMP 97.7; O2SAT 97
[2024-11-26] MEDS: HYDROCORTISONE 2.5% TOPICAL CREAM 30GM TUBE TOP SCH (13:22)
[2024-11-26] MEDS: LACTULOSE 20Gm/30ML SOLN PO SCH (13:23)
[2024-11-26 20:00] VITALS: PULSE 53; RESP 17; O2SAT 97
[2024-11-26 21:00] VITALS: BP 125/66; PULSE 53; RESP 17; TEMP 97.6; O2SAT 97
[2024-11-27] VITALS (8 sets, daily range): BP systolic 109–141; BP diastolic 54–68; PULSE 57–60; RESP 17–60; TEMP 97.3–98.6; O2SAT 96–100
[2024-11-27 05:59] LABS: Potassium 3.5 mmol/L (3.5-5.1)
[2024-11-27 06:00] LABS: Anion Gap 12 (5-15); Carbon Dioxide 17 mmol/L (20-31); Chloride 118 mmol/L (98-107); Sodium 147 mmol/L (136-145)
[2024-11-27 06:01] LABS: Calcium 8.4 mg/dL (8.7-10.4)
[2024-11-27 06:05] LABS: BUN/Creatinine Ratio 11.7 (10.0-20.0); Blood Urea Nitrogen 18 mg/dL (9-23); Glucose 100 mg/dL (74-106)
--- NOTE | 2024-11-27 18:12 | DVHPN2 ---
Subjective In bed resting Reviewed: H&P, Labs Changes from previous H/P or p: No Changes Objective Vitals Vital Signs Date Time Temp Pulse Resp B/P (MAP) Pulse Ox O2 Delivery O2 Flow Rate FiO2 11/27/24 15:00 97.7 57 18 133/68 (89) 100 97.7 11/27/24 08:00 Room Air* 0 21 Intake/Output Intake and Output 11/27/24 06:59 Intake Total 2320 ml Output Total 825 ml Balance 1495 ml Intake Oral 1600 ml IV Total 720 ml Output Urine Total 425 ml Stool Total 400 ml # Bowel Movements 13 General Appearance: Alert, Oriented X3 HEENT: Atraumatic Lungs: Clear to auscultation Cardiovascular: Regular rate, Normal S1, Normal S2 Abdomen: Normal bowel sounds Medications Current Medications Medications Dose Ordered Sig/Calin Route Start Time Stop Time Status Last Admin Dose Admin Ondansetron HCl 4 mg Q4HP PRN IV 11/22/24 23:45 Ceftriaxone Sodium 50 ml @ 100 mls/hr DAILY@09 IV 11/24/24 09:00 11/27/24 08:52 100 MLS/HR Rifaximin 550 mg BID PO 11/24/24 10:00 11/27/24 09:04 550 MG Metronidazole 100 ml @ 100 mls/hr Q8HR IV 11/24/24 14:00 11/27/24 14:04 100 MLS/HR Thiamine HCl 100 mg DAILY IV 11/24/24 10:00 11/27/24 09:05 100 MG Morphine Sulfate 1 mg Q6HP PRN IV 11/24/24 15:00 UNV Morphine Sulfate 1 mg Q6HPRN PRN IV 11/24/24 15:00 11/24/24 22:01 1 MG Pantoprazole Sodium 40 mg DAILY IV 11/26/24 10:00 11/27/24 09:05 40 MG Lactulose 30 ml Q4HR PO 11/26/24 14:00 11/27/24 17:45 30 ML Hydrocortisone 1 applic BID TOP 11/26/24 12:26 11/27/24 09:05 1 APPLIC Laboratory Results Laboratory Tests 11/24/24 08:45 11/27/24 05:03 Chemistry Test 11/27/24 05:03 Calcium Level 8.4 mg/dL (8.7-10.4) L Urinalysis Test 11/24/24 03:30 Urine Color Yellow (Yellow) Urine Clarity Turbid (Clear) H Urine pH 6.0 (5.0-9.0) Urine Specific [place] 1.025 (1.001-1.035) Urine Protein 1+ (Negative) H Urine Ketones Negative (Negative) Urine Blood 3+ /uL (Negative) H Urine Nitrite Negative (Negative) Urine Bilirubin Negative (Negative) Urine Urobilinogen 4 mg/dL (Negative) H Urine Leukocyte Esterase Trace /uL (Negative) Urine RBC 708 /hpf (0 - 4) Urine Microscopic WBC 24 /HPF (0-5) H Urine Squamous Epithelial Cells Few /hpf (<5) Urine Bacteria None seen /hpf (None Seen) Urine Mucus Few (None Seen) Urine Glucose Normal mg/dL (Normal) Microbiology Microbiology Date/Time Source Procedure Growth Status 11/24/24 03:30 Urine - [place] Urine Culture - Final Complete Assessment/Plan Assessment/Plan #1 hepatic encephalopathy: ng tube, lactulose, hep panel, rifaximin, full liquid diet #2 h/o breast cancer #3 obesity #4 htn #5 thrombocytopenia #6 ckd staqe 3 #7 hypernatremia: free water #8 liver cirrhosis ?metabolic Dispo: Possibld cc tomorrow Plan discussed with: Patient Date of Service: Nov 27, 2024 Billing Provider: HERLINDA POND MD Common Visit Codes: [id number] INP/OBS CARE(HIGH) HERLINDA POND MD Nov 27, 2024 18:12
[2024-11-28] VITALS (8 sets, daily range): BP systolic 126–137; BP diastolic 62–74; PULSE 52–60; RESP 17–18; TEMP 98–98.6; O2SAT 96–99
[2024-11-28 10:43] LABS: Potassium 3.5 mmol/L (3.5-5.1)
[2024-11-28 10:44] LABS: Anion Gap 11 (5-15)
[2024-11-28 10:45] LABS: Calcium 9.2 mg/dL (8.7-10.4)
[2024-11-28 10:49] LABS: BUN/Creatinine Ratio 9.4 (10.0-20.0); Blood Urea Nitrogen 15 mg/dL (9-23); Carbon Dioxide 18 mmol/L (20-31); Chloride 119 mmol/L (98-107); Sodium 148 mmol/L (136-145)
[2024-11-28 10:50] LABS: Glucose 119 mg/dL (74-106)
--- NOTE | 2024-11-28 14:36 | DVHPN2 ---
Subjective In bed resting Reviewed: H&P, Labs Changes from previous H/P or p: No Changes Objective Vitals Vital Signs Date Time Temp Pulse Resp B/P (MAP) Pulse Ox O2 Delivery O2 Flow Rate FiO2 11/28/24 13:30 98.2 59 17 126/64 (84) 99 98.2 11/28/24 07:50 Room Air* 0 21 Intake/Output Intake and Output 11/28/24 07:00 Intake Total 1604 ml Output Total 575 ml Balance 1029 ml Intake Oral 1254 ml IV Total 350 ml Output Urine Total 450 ml Stool Total 125 ml # Bowel Movements 8 General Appearance: Alert, Oriented X3 HEENT: Atraumatic Lungs: Clear to auscultation Cardiovascular: Regular rate, Normal S1, Normal S2 Abdomen: Normal bowel sounds Medications Current Medications Medications Dose Ordered Sig/Calin Route Start Time Stop Time Status Last Admin Dose Admin Ondansetron HCl 4 mg Q4HP PRN IV 11/22/24 23:45 Ceftriaxone Sodium 50 ml @ 100 mls/hr DAILY@09 IV 11/24/24 09:00 11/28/24 09:11 100 MLS/HR Rifaximin 550 mg BID PO 11/24/24 10:00 11/28/24 09:11 550 MG Metronidazole 100 ml @ 100 mls/hr Q8HR IV 11/24/24 14:00 11/28/24 14:02 100 MLS/HR Thiamine HCl 100 mg DAILY IV 11/24/24 10:00 11/28/24 09:12 100 MG Morphine Sulfate 1 mg Q6HP PRN IV 11/24/24 15:00 UNV Morphine Sulfate 1 mg Q6HPRN PRN IV 11/24/24 15:00 11/24/24 22:01 1 MG Pantoprazole Sodium 40 mg DAILY IV 11/26/24 10:00 11/28/24 09:12 40 MG Lactulose 30 ml Q4HR PO 11/26/24 14:00 11/28/24 14:04 30 ML Hydrocortisone 1 applic BID TOP 11/26/24 12:26 11/28/24 09:12 1 APPLIC Laboratory Results Laboratory Tests 11/24/24 08:45 11/28/24 09:44 Chemistry Test 11/28/24 09:44 Calcium Level 9.2 mg/dL (8.7-10.4) Urinalysis Test 11/24/24 03:30 Urine Color Yellow (Yellow) Urine Clarity Turbid (Clear) H Urine pH 6.0 (5.0-9.0) Urine Specific [place] 1.025 (1.001-1.035) Urine Protein 1+ (Negative) H Urine Ketones Negative (Negative) Urine Blood 3+ /uL (Negative) H Urine Nitrite Negative (Negative) Urine Bilirubin Negative (Negative) Urine Urobilinogen 4 mg/dL (Negative) H Urine Leukocyte Esterase Trace /uL (Negative) Urine RBC 708 /hpf (0 - 4) Urine Microscopic WBC 24 /HPF (0-5) H Urine Squamous Epithelial Cells Few /hpf (<5) Urine Bacteria None seen /hpf (None Seen) Urine Mucus Few (None Seen) Urine Glucose Normal mg/dL (Normal) Microbiology Microbiology Date/Time Source Procedure Growth Status 11/24/24 03:30 Urine - [place] Urine Culture - Final Complete Assessment/Plan Assessment/Plan #1 hepatic encephalopathy: ng tube, lactulose, hep panel, rifaximin, full liquid diet #2 h/o breast cancer #3 obesity #4 htn #5 thrombocytopenia #6 LUBA on CKD stage 3 baseline creat 1.1 Creat trending up 1.4>1.59 #7 hypernatremia: free water #8 liver cirrhosis ?metabolic Dispo:Possible DC tomorrow if creat better Plan discussed with: Patient My Orders Orders - HERLINDA POND MD Procedure Category Date Status Time Basic Metabolic Panel LAB 11/29/24 Verified 05:00 Basic Metabolic Panel LAB 11/30/24 Verified 05:00 Basic Metabolic Panel LAB 12/01/24 Verified 05:00 Basic Metabolic Panel LAB 12/02/24 Verified 05:00 Basic Metabolic Panel LAB 12/03/24 Verified 05:00 Basic Metabolic Panel LAB 12/04/24 Verified 05:00 Basic Metabolic Panel LAB 12/05/24 Verified 05:00 Date of Service: Nov 28, 2024 Billing Provider: HERLINDA POND MD Common Visit Codes: [id number] INP/OBS CARE(HIGH) HERLINDA POND MD Nov 28, 2024 14:36
--- NOTE | 2024-11-28 14:47 | DVHSR ---
APPROVED REPORT EXAM: Two-dimensional and M-mode echocardiogram with Doppler and color Doppler. Blood Pressure: 139/58 mmHg INDICATION CHF RISK FACTORS Height: 4'10", Weight: 165 DIMENSIONS LVDd4.6 (3.8-5.7cm)LA (2D)3.5 (1.9-4.0cm)Aortic Root3.2 (2.0-3.7cm) LVDs3.0 (2.5-4.0cm)LA (MM) (1.9-4.0cm)Aortic Cusp Exc1.6 (1.5-2.0cm) EF (%) 65.0 (55-70%)Rt. Atrium3.2 (1.9-4.0cm)Asc. Aorta cm IVSd0.9 (0.7-1.1cm)RV (D) (1.8-2.4cm) PWd0.8 (0.7-1.1cm) Mitral Valve MitralMitral Stenosis E wave1.01m/sMV Mean GR.mmHg A wave0.66m/sMV Peak GR.mmHg E/A ratio1.52D MVAcm2 DECEL [id number] 1/2 [place] Aortic Valve Aortic ValveAortic Stenosis V11.17m/Summer Mean GR.6mmHg V21.74m/Summer Peak GR.12mmHg LVOT Diameter1.9 (1.8-2.4cm)Doppler AVA1.91cm2 AI P 1/2 [id number] Pulmonic Valve V21.06m/s Tricuspid Valve TR Velocity2.06m/s [id number] Other Information Technically limited study due to body habitus, patient altered. Conclusion Sinus rhythm. Normal chamber sizes. Valves are normal. EF of 60% with normal RV function. Moderate aortic insufficiency. Mild pulmonic insufficiency. Mild tricuspid regurgitation. No pericardial effusion masses or vegetations.
[2024-11-29] VITALS (8 sets, daily range): BP systolic 113–134; BP diastolic 51–74; PULSE 55–60; RESP 17–18; TEMP 96.9–98.6; O2SAT 97–100
[2024-11-29 07:42] LABS: Anion Gap 12 (5-15); Potassium 3.8 mmol/L (3.5-5.1); Sodium 144 mmol/L (136-145)
[2024-11-29 07:47] LABS: BUN/Creatinine Ratio 7.6 (10.0-20.0); Blood Urea Nitrogen 12 mg/dL (9-23); Glucose 79 mg/dL (74-106)
[2024-11-29 07:54] LABS: Calcium 8.4 mg/dL (8.7-10.4); Carbon Dioxide 17 mmol/L (20-31); Chloride 115 mmol/L (98-107)
--- NOTE | 2024-11-29 17:28 | DVHPN2 ---
Subjective In bed resting Reviewed: H&P, Labs Changes from previous H/P or p: No Changes Objective Vitals Vital Signs Date Time Temp Pulse Resp B/P (MAP) Pulse Ox O2 Delivery O2 Flow Rate FiO2 11/29/24 16:36 98.6 59 18 113/51 (71) 100 98.6 11/29/24 08:00 Room Air* 0 21 Intake/Output Intake and Output 11/29/24 07:00 Intake Total 2410 ml Output Total 550 ml Balance 1860 ml Intake Oral 2260 ml IV Total 150 ml Output Urine Total 550 ml # Bowel Movements 13 General Appearance: Alert, Oriented X3 HEENT: Atraumatic Lungs: Clear to auscultation Cardiovascular: Regular rate, Normal S1, Normal S2 Abdomen: Normal bowel sounds Medications Current Medications Medications Dose Ordered Sig/Calin Route Start Time Stop Time Status Last Admin Dose Admin Ondansetron HCl 4 mg Q4HP PRN IV 11/22/24 23:45 Ceftriaxone Sodium 50 ml @ 100 mls/hr DAILY@09 IV 11/24/24 09:00 11/29/24 10:04 100 MLS/HR Rifaximin 550 mg BID PO 11/24/24 10:00 11/29/24 10:04 550 MG Metronidazole 100 ml @ 100 mls/hr Q8HR IV 11/24/24 14:00 11/29/24 13:37 100 MLS/HR Thiamine HCl 100 mg DAILY IV 11/24/24 10:00 11/29/24 10:04 100 MG Morphine Sulfate 1 mg Q6HP PRN IV 11/24/24 15:00 UNV Morphine Sulfate 1 mg Q6HPRN PRN IV 11/24/24 15:00 11/24/24 22:01 1 MG Pantoprazole Sodium 40 mg DAILY IV 11/26/24 10:00 11/29/24 10:04 40 MG Lactulose 30 ml Q4HR PO 11/26/24 14:00 11/29/24 13:37 30 ML Hydrocortisone 1 applic BID TOP 11/26/24 12:26 11/29/24 10:03 1 APPLIC Laboratory Results Laboratory Tests 11/24/24 08:45 11/29/24 07:07 Chemistry Test 11/29/24 07:07 Calcium Level 8.4 mg/dL (8.7-10.4) L Urinalysis Test 11/24/24 03:30 Urine Color Yellow (Yellow) Urine Clarity Turbid (Clear) H Urine pH 6.0 (5.0-9.0) Urine Specific [place] 1.025 (1.001-1.035) Urine Protein 1+ (Negative) H Urine Ketones Negative (Negative) Urine Blood 3+ /uL (Negative) H Urine Nitrite Negative (Negative) Urine Bilirubin Negative (Negative) Urine Urobilinogen 4 mg/dL (Negative) H Urine Leukocyte Esterase Trace /uL (Negative) Urine RBC 708 /hpf (0 - 4) Urine Microscopic WBC 24 /HPF (0-5) H Urine Squamous Epithelial Cells Few /hpf (<5) Urine Bacteria None seen /hpf (None Seen) Urine Mucus Few (None Seen) Urine Glucose Normal mg/dL (Normal) Microbiology Microbiology Date/Time Source Procedure Growth Status 11/24/24 03:30 Urine - [place] Urine Culture - Final Complete Assessment/Plan Assessment/Plan #1 hepatic encephalopathy: ng tube, lactulose, hep panel, rifaximin, full liquid diet #2 h/o breast cancer #3 obesity #4 htn #5 thrombocytopenia #6 LUBA on CKD stage 3 baseline creat 1.1 Creat trending up 1.4>1.59>1.58 #7 hypernatremia: free water #8 liver cirrhosis ?metabolic Dispo:Possible DC tomorrow if creat better Plan discussed with: Patient Date of Service: Nov 29, 2024 Billing Provider: HERLINDA POND MD Common Visit Codes: [id number] INP/OBS CARE(HIGH) HERLINDA POND MD Nov 29, 2024 17:28
[2024-11-30] VITALS (7 sets, daily range): BP systolic 98–127; BP diastolic 50–64; PULSE 52–65; RESP 16–18; TEMP 97.7–98.6; O2SAT 99–100
[2024-11-30 06:17] LABS: Potassium 3.9 mmol/L (3.5-5.1); Sodium 139 mmol/L (136-145)
[2024-11-30 06:18] LABS: Anion Gap 11 (5-15); Calcium 9.2 mg/dL (8.7-10.4)
[2024-11-30 06:23] LABS: BUN/Creatinine Ratio 6.8 (10.0-20.0); Blood Urea Nitrogen 10 mg/dL (9-23); Glucose 94 mg/dL (74-106)
[2024-11-30 06:31] LABS: Carbon Dioxide 16 mmol/L (20-31); Chloride 112 mmol/L (98-107)
--- NOTE | 2024-11-30 16:13 | DVHPN2 ---
Subjective In bed resting Reviewed: H&P, Labs Changes from previous H/P or p: No Changes Objective Vitals Vital Signs Date Time Temp Pulse Resp B/P (MAP) Pulse Ox O2 Delivery O2 Flow Rate FiO2 11/30/24 12:30 98.6 65 18 127/63 (84) 100 98.6 11/30/24 08:30 Room Air* 0 21 Intake/Output Intake and Output 11/30/24 07:00 Intake Total 3050 ml Output Total 1900 ml Balance 1150 ml Intake Oral 2700 ml IV Total 350 ml Output Urine Total 1900 ml # Bowel Movements 6 General Appearance: Alert, Oriented X3 HEENT: Atraumatic Lungs: Clear to auscultation Cardiovascular: Regular rate, Normal S1, Normal S2 Abdomen: Normal bowel sounds Medications Current Medications Medications Dose Ordered Sig/Calin Route Start Time Stop Time Status Last Admin Dose Admin Ondansetron HCl 4 mg Q4HP PRN IV 11/22/24 23:45 Ceftriaxone Sodium 50 ml @ 100 mls/hr DAILY@09 IV 11/24/24 09:00 11/30/24 08:50 100 MLS/HR Rifaximin 550 mg BID PO 11/24/24 10:00 11/30/24 08:50 550 MG Metronidazole 100 ml @ 100 mls/hr Q8HR IV 11/24/24 14:00 11/30/24 06:19 100 MLS/HR Thiamine HCl 100 mg DAILY IV 11/24/24 10:00 11/30/24 08:50 100 MG Morphine Sulfate 1 mg Q6HP PRN IV 11/24/24 15:00 UNV Morphine Sulfate 1 mg Q6HPRN PRN IV 11/24/24 15:00 11/24/24 22:01 1 MG Pantoprazole Sodium 40 mg DAILY IV 11/26/24 10:00 11/30/24 08:50 40 MG Lactulose 30 ml Q4HR PO 11/26/24 14:00 11/30/24 15:17 30 ML Hydrocortisone 1 applic BID TOP 11/26/24 12:26 11/30/24 09:00 1 APPLIC Laboratory Results Laboratory Tests 11/24/24 08:45 11/30/24 04:37 Chemistry Test 11/30/24 04:37 Calcium Level 9.2 mg/dL (8.7-10.4) Urinalysis Test 11/24/24 03:30 Urine Color Yellow (Yellow) Urine Clarity Turbid (Clear) H Urine pH 6.0 (5.0-9.0) Urine Specific [place] 1.025 (1.001-1.035) Urine Protein 1+ (Negative) H Urine Ketones Negative (Negative) Urine Blood 3+ /uL (Negative) H Urine Nitrite Negative (Negative) Urine Bilirubin Negative (Negative) Urine Urobilinogen 4 mg/dL (Negative) H Urine Leukocyte Esterase Trace /uL (Negative) Urine RBC 708 /hpf (0 - 4) Urine Microscopic WBC 24 /HPF (0-5) H Urine Squamous Epithelial Cells Few /hpf (<5) Urine Bacteria None seen /hpf (None Seen) Urine Mucus Few (None Seen) Urine Glucose Normal mg/dL (Normal) Microbiology Microbiology Date/Time Source Procedure Growth Status 11/24/24 03:30 Urine - [place] Urine Culture - Final Complete Assessment/Plan Assessment/Plan #1 hepatic encephalopathy: ng tube, lactulose, hep panel, rifaximin, full liquid diet #2 h/o breast cancer #3 obesity #4 htn #5 thrombocytopenia #6 LUBA on CKD stage 3 baseline creat 1.1 Creat trending up 1.4>1.59>1.58>1.4 #7 hypernatremia: free water #8 liver cirrhosis ?metabolic Dispo:Possible DC tomorrow if creat better Plan discussed with: Patient My Orders Orders - HERLINDA POND MD Procedure Category Date Status Time Discontinue [place] 11/29/24 In Process Catheter 18:56 Date of Service: Nov 30, 2024 Billing Provider: HERLINDA POND MD Common Visit Codes: [id number] INP/OBS CARE(HIGH) HERLINDA POND MD Nov 30, 2024 16:13
[2024-12-01 01:00] VITALS: BP 137/51; PULSE 54; RESP 17; TEMP 98.1; O2SAT 100
[2024-12-01 05:00] VITALS: BP 134/56; PULSE 53; RESP 16; TEMP 98.6; O2SAT 98
[2024-12-01 08:59] VITALS: BP 150/70; PULSE 60; RESP 16; TEMP 98.1; O2SAT 99
[2024-12-01 11:11] LABS: Calcium 9.3 mg/dL (8.7-10.4)
[2024-12-01 11:12] LABS: Anion Gap 12 (5-15); Carbon Dioxide 16 mmol/L (20-31); Chloride 111 mmol/L (98-107); Potassium 4.2 mmol/L (3.5-5.1); Sodium 139 mmol/L (136-145)
[2024-12-01 11:17] LABS: BUN/Creatinine Ratio 5.3 (10.0-20.0)
[2024-12-01 11:19] LABS: Blood Urea Nitrogen 8 mg/dL (9-23); Glucose 113 mg/dL (74-106)
[2024-12-01 13:00] VITALS: BP 137/70; PULSE 55; RESP 16; TEMP 97.8; O2SAT 100
[2024-12-01 17:00] VITALS: BP 149/74; PULSE 54; RESP 18; TEMP 97.8; O2SAT 98
--- NOTE | 2024-12-01 17:10 | DVHPN2 ---
Subjective In bed resting Reviewed: H&P, Labs Changes from previous H/P or p: No Changes Objective Vitals Vital Signs Date Time Temp Pulse Resp B/P (MAP) Pulse Ox O2 Delivery O2 Flow Rate FiO2 12/01/24 17:00 97.8 54 18 149/74 (99) 98 97.8 12/01/24 07:34 Room Air* 0 21 Intake/Output Intake and Output 12/01/24 07:00 Intake Total 1900 ml Balance 1900 ml Intake Oral 1650 ml IV Total 250 ml # Voids 6 # Bowel Movements 2 General Appearance: Alert, Oriented X3 HEENT: Atraumatic Lungs: Clear to auscultation Cardiovascular: Regular rate, Normal S1, Normal S2 Abdomen: Normal bowel sounds Medications Current Medications Medications Dose Ordered Sig/Calin Route Start Time Stop Time Status Last Admin Dose Admin Ondansetron HCl 4 mg Q4HP PRN IV 11/22/24 23:45 Ceftriaxone Sodium 50 ml @ 100 mls/hr DAILY@09 IV 11/24/24 09:00 12/01/24 09:14 100 MLS/HR Rifaximin 550 mg BID PO 11/24/24 10:00 12/01/24 09:14 550 MG Metronidazole 100 ml @ 100 mls/hr Q8HR IV 11/24/24 14:00 12/01/24 15:02 100 MLS/HR Thiamine HCl 100 mg DAILY IV 11/24/24 10:00 12/01/24 09:14 100 MG Morphine Sulfate 1 mg Q6HP PRN IV 11/24/24 15:00 UNV Morphine Sulfate 1 mg Q6HPRN PRN IV 11/24/24 15:00 11/24/24 22:01 1 MG Pantoprazole Sodium 40 mg DAILY IV 11/26/24 10:00 12/01/24 09:14 40 MG Lactulose 30 ml Q4HR PO 11/26/24 14:00 12/01/24 15:02 30 ML Hydrocortisone 1 applic BID TOP 11/26/24 12:26 12/01/24 09:14 1 APPLIC Laboratory Results Laboratory Tests 11/24/24 08:45 12/01/24 10:29 Chemistry Test 12/01/24 10:29 Calcium Level 9.3 mg/dL (8.7-10.4) Urinalysis Test 11/24/24 03:30 Urine Color Yellow (Yellow) Urine Clarity Turbid (Clear) H Urine pH 6.0 (5.0-9.0) Urine Specific [place] 1.025 (1.001-1.035) Urine Protein 1+ (Negative) H Urine Ketones Negative (Negative) Urine Blood 3+ /uL (Negative) H Urine Nitrite Negative (Negative) Urine Bilirubin Negative (Negative) Urine Urobilinogen 4 mg/dL (Negative) H Urine Leukocyte Esterase Trace /uL (Negative) Urine RBC 708 /hpf (0 - 4) Urine Microscopic WBC 24 /HPF (0-5) H Urine Squamous Epithelial Cells Few /hpf (<5) Urine Bacteria None seen /hpf (None Seen) Urine Mucus Few (None Seen) Urine Glucose Normal mg/dL (Normal) Microbiology Microbiology Date/Time Source Procedure Growth Status 11/24/24 03:30 Urine - [place] Urine Culture - Final Complete Assessment/Plan Assessment/Plan #1 hepatic encephalopathy: lactulose, rifaximin, regular diet #2 h/o breast cancer #3 obesity #4 htn #5 thrombocytopenia #6 LUBA on CKD stage 3 baseline creat 1.1 Creat trending up 1.4>1.59>1.58>1.4>1.5 #7 hypernatremia: free water #8 liver cirrhosis ?metabolic Dispo:Possible DC tomorrow if creat better Plan discussed with: Patient My Orders Orders - HERLINDA POND MD Procedure Category Date Status Time Regular Diet DIET 12/01/24 Transmitted Lunch Date of Service: Dec 01, 2024 Billing Provider: HERLINDA POND MD Common Visit Codes: [id number] INP/OBS CARE(HIGH) HERLINDA POND MD Dec 01, 2024 17:10
[2024-12-01 21:00] VITALS: BP 129/67; PULSE 55; RESP 18; TEMP 97.1; O2SAT 100
[2024-12-02 01:00] VITALS: BP 116/64; PULSE 57; RESP 20; TEMP 96.5; O2SAT 97
[2024-12-02 05:00] VITALS: BP 113/64; PULSE 55; RESP 18; TEMP 97.1; O2SAT 98
[2024-12-02 05:24] LABS: Sodium 138 mmol/L (136-145)
[2024-12-02 05:25] LABS: Anion Gap 11 (5-15)
[2024-12-02 05:30] LABS: BUN/Creatinine Ratio 5.8 (10.0-20.0); Glucose 91 mg/dL (74-106)
[2024-12-02 05:34] LABS: Blood Urea Nitrogen 8 mg/dL (9-23); Calcium 8.3 mg/dL (8.7-10.4); Carbon Dioxide 17 mmol/L (20-31); Chloride 110 mmol/L (98-107)
[2024-12-02 09:00] VITALS: BP 125/54; PULSE 57; RESP 17; TEMP 98.3; O2SAT 99
[2024-12-02 13:00] VITALS: BP 124/54; PULSE 60; RESP 15; TEMP 97.6; O2SAT 100
--- NOTE | 2024-12-02 15:57 | DVHPN2 ---
Subjective In bed resting Reviewed: H&P, Labs Changes from previous H/P or p: No Changes Objective Vitals Vital Signs Date Time Temp Pulse Resp B/P (MAP) Pulse Ox O2 Delivery O2 Flow Rate FiO2 12/02/24 09:00 98.3 57 17 125/54 (77) 99 98.3 12/02/24 08:00 Room Air* 0 21 Intake/Output Intake and Output 12/02/24 07:00 Intake Total 1050 ml Output Total 1250 ml Balance -200 ml Intake Oral 900 ml IV Total 150 ml Output Urine Total 1250 ml # Bowel Movements 4 General Appearance: Alert, Oriented X3 HEENT: Atraumatic Lungs: Clear to auscultation Cardiovascular: Regular rate, Normal S1, Normal S2 Abdomen: Normal bowel sounds Medications Current Medications Medications Dose Ordered Sig/Calin Route Start Time Stop Time Status Last Admin Dose Admin Ondansetron HCl 4 mg Q4HP PRN IV 11/22/24 23:45 Thiamine HCl 100 mg DAILY IV 11/24/24 10:00 12/02/24 11:10 100 MG Morphine Sulfate 1 mg Q6HP PRN IV 11/24/24 15:00 UNV Morphine Sulfate 1 mg Q6HPRN PRN IV 11/24/24 15:00 11/24/24 22:01 1 MG Pantoprazole Sodium 40 mg DAILY IV 11/26/24 10:00 12/02/24 11:15 40 MG Lactulose 30 ml Q4HR PO 11/26/24 14:00 12/02/24 11:15 30 ML Hydrocortisone 1 applic BID TOP 11/26/24 12:26 12/02/24 11:21 1 APPLIC Laboratory Results Laboratory Tests 11/24/24 08:45 12/02/24 04:34 Chemistry Test 12/02/24 04:34 Calcium Level 8.3 mg/dL (8.7-10.4) L Urinalysis Test 11/24/24 03:30 Urine Color Yellow (Yellow) Urine Clarity Turbid (Clear) H Urine pH 6.0 (5.0-9.0) Urine Specific [place] 1.025 (1.001-1.035) Urine Protein 1+ (Negative) H Urine Ketones Negative (Negative) Urine Blood 3+ /uL (Negative) H Urine Nitrite Negative (Negative) Urine Bilirubin Negative (Negative) Urine Urobilinogen 4 mg/dL (Negative) H Urine Leukocyte Esterase Trace /uL (Negative) Urine RBC 708 /hpf (0 - 4) Urine Microscopic WBC 24 /HPF (0-5) H Urine Squamous Epithelial Cells Few /hpf (<5) Urine Bacteria None seen /hpf (None Seen) Urine Mucus Few (None Seen) Urine Glucose Normal mg/dL (Normal) Microbiology Microbiology Date/Time Source Procedure Growth Status 11/24/24 03:30 Urine - [place] Urine Culture - Final Complete Assessment/Plan Assessment/Plan #1 hepatic encephalopathy: Continue lactulose #2 h/o breast cancer #3 obesity #4 htn #5 thrombocytopenia #6 LUBA on CKD stage 3 baseline creat 1.1 Creat trending up 1.4>1.59>1.58>1.4>1.5>1.3 #7 hypernatremia: resolved now #8 liver cirrhosis ?metabolic Dispo:Possible DC tomorrow if creat better Plan discussed with: Patient Date of Service: Dec 02, 2024 Billing Provider: HERLINDA POND MD Common Visit Codes: [id number] INP/OBS CARE(HIGH) HERLINDA POND MD Dec 02, 2024 15:57
[2024-12-02 17:00] VITALS: BP_SYST 101; BP_SYST 124; BP_DIAS 51; BP_DIAS 54; PULSE 54; PULSE 60; RESP 15; TEMP 97.6; TEMP 98.1; O2SAT 100; O2SAT 99
[2024-12-02 21:00] VITALS: BP 127/64; PULSE 60; RESP 18; TEMP 97; O2SAT 99
[2024-12-03] VITALS (8 sets, daily range): BP systolic 104–127; BP diastolic 37–69; PULSE 51–60; RESP 16–20; TEMP 97.1–98.4; O2SAT 98–100
[2024-12-03 05:56] LABS: Potassium 3.7 mmol/L (3.5-5.1); Sodium 140 mmol/L (136-145)
[2024-12-03 05:57] LABS: Anion Gap 9 (5-15); Carbon Dioxide 21 mmol/L (20-31)
[2024-12-03 05:58] LABS: Calcium 8.9 mg/dL (8.7-10.4)
[2024-12-03 05:59] LABS: Chloride 110 mmol/L (98-107)
[2024-12-03 06:02] LABS: BUN/Creatinine Ratio 7.6 (10.0-20.0); Blood Urea Nitrogen 10 mg/dL (9-23); Glucose 91 mg/dL (74-106)
--- NOTE | 2024-12-03 11:26 | DVHPN2 ---
Subjective The patient is seen and examined at bedside. No complaint today. Reviewed: Care Plan, H&P, Labs, Medications, Previous Orders, Radiology Changes from previous H/P or p: No Changes Objective Vitals Vital Signs Date Time Temp Pulse Resp B/P (MAP) Pulse Ox O2 Delivery O2 Flow Rate FiO2 12/03/24 09:00 98.4 54 18 104/37 (59) 100 98.4 12/02/24 20:00 Room Air* 0 21 Intake/Output Intake and Output 12/03/24 07:00 Intake Total 1422 ml Output Total 1200 ml Balance 222 ml Intake Oral 1422 ml Output Urine Total 1200 ml # Bowel Movements 3 General Appearance: Alert, Oriented X3 HEENT: Atraumatic, PERRLA, EOMI, Mucous membr. moist/pink Lungs: Clear to auscultation Cardiovascular: Regular rate, Normal S1, Normal S2, No murmurs, Gallops, Rubs Abdomen: Normal bowel sounds, Soft, No tenderness Neuro: Cranial nerves 3-12 NL Psych/Mental Status: Mental status NL Medications Current Medications Medications Dose Ordered Sig/Calin Route Start Time Stop Time Status Last Admin Dose Admin Ondansetron HCl 4 mg Q4HP PRN IV 11/22/24 23:45 Thiamine HCl 100 mg DAILY IV 11/24/24 10:00 12/03/24 10:06 100 MG Morphine Sulfate 1 mg Q6HP PRN IV 11/24/24 15:00 UNV Morphine Sulfate 1 mg Q6HPRN PRN IV 11/24/24 15:00 11/24/24 22:01 1 MG Pantoprazole Sodium 40 mg DAILY IV 11/26/24 10:00 12/03/24 10:06 40 MG Lactulose 30 ml Q4HR PO 11/26/24 14:00 12/03/24 10:05 30 ML Hydrocortisone 1 applic BID TOP 11/26/24 12:26 12/03/24 10:05 1 APPLIC Laboratory Results Laboratory Tests 11/24/24 08:45 12/03/24 04:47 Chemistry Test 12/03/24 04:47 Calcium Level 8.9 mg/dL (8.7-10.4) Urinalysis Test 11/24/24 03:30 Urine Color Yellow (Yellow) Urine Clarity Turbid (Clear) H Urine pH 6.0 (5.0-9.0) Urine Specific [place] 1.025 (1.001-1.035) Urine Protein 1+ (Negative) H Urine Ketones Negative (Negative) Urine Blood 3+ /uL (Negative) H Urine Nitrite Negative (Negative) Urine Bilirubin Negative (Negative) Urine Urobilinogen 4 mg/dL (Negative) H Urine Leukocyte Esterase Trace /uL (Negative) Urine RBC 708 /hpf (0 - 4) Urine Microscopic WBC 24 /HPF (0-5) H Urine Squamous Epithelial Cells Few /hpf (<5) Urine Bacteria None seen /hpf (None Seen) Urine Mucus Few (None Seen) Urine Glucose Normal mg/dL (Normal) Microbiology Microbiology Date/Time Source Procedure Growth Status 11/24/24 03:30 Urine - [place] Urine Culture - Final Complete Labs and/or images reviewed: Labs reviewed by me Assessment/Plan Assessment/Plan #1 hepatic encephalopathy: Continue lactulose #2 h/o breast cancer #3 obesity #4 htn #5 thrombocytopenia #6 LUBA on CKD stage 3 baseline creat 1.1 Creat trending up 1.4>1.59>1.58>1.4>1.5>1.3 #7 hypernatremia: resolved now #8 liver cirrhosis ?metabolic Continuing current management. We will repeat the BUN creatinine in a.m.. Discharge planning. Plan discussed with: Patient Date of Service: Dec 03, 2024 Billing Provider: DEREK ORANTES MD Common Visit Codes: [id number] INP/OBS CARE(HIGH) DEREK ORANTES MD Dec 03, 2024 11:26
[2024-12-04 01:00] VITALS: BP 116/58; PULSE 50; RESP 17; TEMP 97.5; O2SAT 100
[2024-12-04 05:00] VITALS: BP 120/70; PULSE 57; RESP 16; TEMP 97.7; O2SAT 100
[2024-12-04 06:09] LABS: Potassium 3.7 mmol/L (3.5-5.1); Sodium 141 mmol/L (136-145)
[2024-12-04 06:10] LABS: Anion Gap 11 (5-15); Calcium 8.9 mg/dL (8.7-10.4)
[2024-12-04 06:14] LABS: Carbon Dioxide 19 mmol/L (20-31); Chloride 111 mmol/L (98-107)
[2024-12-04 06:15] LABS: Glucose 100 mg/dL (74-106)
[2024-12-04 06:16] LABS: BUN/Creatinine Ratio 7.2 (10.0-20.0); Blood Urea Nitrogen 9 mg/dL (9-23)
[2024-12-04 08:00] VITALS: RESP 16
--- NOTE | 2024-12-04 08:02 | DVHDS2 ---
Discharge Summary Date of Admission Nov 22, 2024 at 23:44 Date of Discharge: Dec 04, 2024 Admitting Diagnosis #1 hepatic encephalopathy: Continue lactulose #2 h/o breast cancer #3 obesity #4 htn #5 thrombocytopenia #6 LUBA on CKD stage 3 baseline creat 1.1 Creat trending up 1.4>1.59>1.58>1.4>1.5>1.3 #7 hypernatremia: resolved now #8 liver cirrhosis ?metabolic Labs/Diagnostic Data: Laboratory Results Test 12/04/24 04:24 11/27/24 05:03 11/26/24 04:52 11/24/24 08:45 Sodium Level 141 mmol/L (136-145) Potassium Level 3.7 mmol/L (3.5-5.1) Chloride Level 111 mmol/L (98-107) Carbon Dioxide Level 19 mmol/L (20-31) Anion Gap 11 (5-15) Blood Urea Nitrogen 9 mg/dL (9-23) Creatinine 1.25 mg/dL (0.550-1.02) Glomerular Filtration Rate Calc 48 mL/min (>90) BUN/Creatinine Ratio 7.2 (10.0-20.0) Serum Glucose 100 mg/dL (74-106) Calcium Level 8.9 mg/dL (8.7-10.4) Ammonia 63 umol/L (11-32) Total Bilirubin 1.8 mg/dL (0.2-1.0) Aspartate Amino Transferase (AST) 195 U/L (13-40) Alanine Aminotransferase (ALT) 47 U/L (7-40) Alkaline Phosphatase 125 U/L (46-116) Total Protein 6.5 g/dL (5.7-8.2) Albumin 3.4 g/dL (3.2-4.8) White Blood Count 7.5 10^3/uL (4.4-10.8) Red Blood Count 2.82 10^6/uL (4.0-5.20) Hemoglobin 10.4 g/dL (12.2-16.2) Hematocrit 30.3 % (36.0-46.0) Mean Corpuscular Volume 107.1 fL (80.0-100.0) Mean Corpuscular Hemoglobin 36.9 pg (28.0-32.0) Mean Corpuscular Hemoglobin Concent 34.4 g/dL (32.0-36.0) Red Cell Distribution Width 15.2 % (11.8-14.3) Platelet Count 50 10^3/uL (140-450) Mean Platelet Volume 11.5 fL (6.9-10.8) Neutrophils (%) (Auto) 70.0 % (37.0-80.0) Lymphocytes (%) (Auto) 20.4 % (10.0-50.0) Monocytes (%) (Auto) 6.9 % (0.0-12.0) Eosinophils (%) (Auto) 1.6 % (0.0-7.0) Basophils (%) (Auto) 1.1 % (0.0-2.0) Neutrophils # (Auto) 5.3 10 ^3/uL (1.6-8.6) Lymphocytes # (Auto) 1.5 10 ^3/uL (0.4-5.4) Monocytes # (Auto) 0.5 10 ^3/uL (0-1.3) Eosinophils # (Auto) 0.1 10 ^3/uL (0-0.8) Basophils # (Auto) 0.1 10 ^3/uL (0-0.2) Nucleated Red Blood Cells 0.0 % Test 11/24/24 03:30 11/23/24 06:02 11/22/24 20:45 11/22/24 20:43 Urine Color Yellow (Yellow) Urine Clarity Turbid (Clear) Urine pH 6.0 (5.0-9.0) Urine Specific [place] 1.025 (1.001-1.035) Urine Protein 1+ (Negative) Urine Ketones Negative (Negative) Urine Blood 3+ /uL (Negative) Urine Nitrite Negative (Negative) Urine Bilirubin Negative (Negative) Urine Urobilinogen 4 mg/dL (Negative) Urine Leukocyte Esterase Trace /uL (Negative) Urine RBC 708 /hpf (0 - 4) Urine Microscopic WBC 24 /HPF (0-5) Urine Squamous Epithelial Cells Few /hpf (<5) Urine Bacteria None seen /hpf (None Seen) Urine Mucus Few (None Seen) Urine Glucose Normal mg/dL (Normal) Hepatitis A IgM Antibody Negative Hepatitis B Surface Antigen Negative (Negative) Hepatitis B Core IgM Antibody Negative (Negative) Hepatitis C Antibody Negative (Negative) Platelet Estimate Decreased Anisocytosis (manual) Slight Macrocytosis Moderate Prothrombin Time 12.6 sec (9.3-11.8) Prothrombin Time INR 1.21 (0.9-1.15) Activated Partial Thromboplast Time 35.1 SEC (24.5-34.5) Lipase 35 U/L (12-53) Test 11/22/24 19:46 POC Glucose 118 mg/dl (70-106) Other Laboratory Tests 12/04/24 04:24 11/24/24 08:45 Brief Hx & Hospital Course: This is a 64 years old female come to emergency department because of altered mental status. The patient has history of liver cirrhosis. The patient presented with one day worsening confusions. The patient was found to have hepatic encephalopathy with ammonia level 180. Patient also had nausea and vomiting. The patient was admitted. The patient was given lactulose. The patient also was found to have acute kidney injury superimposed on chronic renal failure. Her creatinine trending down almost to the baseline today at 1.25. The patient alert oriented x3. The patient had bowel movement. Her ammonia level is trending down. I am Going to discharge her home. Advised her to continuing lactulose at home. Advised her to follow up with primary care physician 1-2 weeks. Activity as tolerated. Diet low protein diet. Physical exam: HEENT: Normocephalic atraumatic pupils equal react to light and accommodation. Extraocular muscles intact, conjunctiva pink, oropharynx moist, no thrush, no exudate. Lymphatic: No lymphadenopathy Cardiovascular exam: S1, S2 was heard. No murmurs, rubs, gallops Lung: Clear on auscultation bilaterally, no wheeze, rale, rhonchi. GI: Abdominal soft, nondistended, nontenderness, positive bowel sounds. Extremity: No crepitus, cyanosis, edema. Pedal pulses present bilateral. Full range of motion. Skin: Normal turgor, no rash. Psych: Alert, oriented x3. Neurology: No focal deficits, cranial nerve II to XII grossly intact. This medical document was created using an electronic medical record system with [employer] direct computerized dictation system. Although this document has been carefully reviewed, there may still be some phonetic and typographical errors. These areas are purely typographical due to imperfections of the software programs, and do not reflect any compromise in the patient's medical care. Condition at Discharge: Stable Final Diagnosis/Problems List #1 hepatic encephalopathy: Continue lactulose #2 h/o breast cancer #3 obesity #4 htn #5 thrombocytopenia #6 LUBA on CKD stage 3 baseline creat 1.1 #7 hypernatremia: resolved now #8 liver cirrhosis ?metabolic Discharge Disposition: Home Discharge Statement: "Patient was advised to return to the ER or call 911 if any headaches, dizziness, shortness of breath, chest pain, abdominal pain, bleeding, fevers, or worsening of medical condition. Patient was counseled about treatment plan, medications, possible side effects, patientverbalized understanding. All questions were answered to the best of my ability. This discharge took greater then 30 minutes in planning, reviewing documentation, counseling the patient, and discussing with other team members." ASSESSMENT ASSESSMENT Assessment Date of Service: Dec 04, 2024 Billing Provider: DEREK ORANTES MD Common Visit Codes: [id number] DISCH DAY >30min DEREK ORANTES MD Dec 04, 2024 08:02
[2024-12-04 09:00] VITALS: BP 124/52; PULSE 51; RESP 16; TEMP 98; O2SAT 98
--- NOTE | 2024-12-04 11:37 | DVHPN2 ---
Subjective The patient is seen and examined at bedside. No complaint today. Reviewed: Care Plan, H&P, Labs, Medications, Previous Orders, Radiology Objective Vitals Vital Signs Date Time Temp Pulse Resp B/P (MAP) Pulse Ox O2 Delivery O2 Flow Rate FiO2 12/04/24 09:00 98.0 51 16 124/52 (76) 98 98.0 12/04/24 08:00 Room Air* 0 21 Intake/Output Intake and Output 12/04/24 07:00 Intake Total 1765 ml Output Total 350 ml Balance 1415 ml Intake Oral 1765 ml Output Urine Total 350 ml # Bowel Movements 11 General Appearance: Alert, Oriented X3 HEENT: Atraumatic, PERRLA, EOMI, Mucous membr. moist/pink Lungs: Clear to auscultation Cardiovascular: Regular rate, Normal S1, Normal S2, No murmurs, Gallops, Rubs Abdomen: Normal bowel sounds, Soft, No tenderness Neuro: Cranial nerves 3-12 NL Psych/Mental Status: Mental status NL Medications Current Medications Medications Dose Ordered Sig/Calin Route Start Time Stop Time Status Last Admin Dose Admin Ondansetron HCl 4 mg Q4HP PRN IV 11/22/24 23:45 Thiamine HCl 100 mg DAILY IV 11/24/24 10:00 12/04/24 09:30 100 MG Morphine Sulfate 1 mg Q6HP PRN IV 11/24/24 15:00 UNV Pantoprazole Sodium 40 mg DAILY IV 11/26/24 10:00 12/04/24 09:31 40 MG Lactulose 30 ml Q4HR PO 11/26/24 14:00 12/04/24 09:31 30 ML Hydrocortisone 1 applic BID TOP 11/26/24 12:26 12/04/24 09:31 1 APPLIC Laboratory Results Laboratory Tests 11/24/24 08:45 12/04/24 04:24 Chemistry Test 12/04/24 04:24 Calcium Level 8.9 mg/dL (8.7-10.4) Urinalysis Test 11/24/24 03:30 Urine Color Yellow (Yellow) Urine Clarity Turbid (Clear) H Urine pH 6.0 (5.0-9.0) Urine Specific [place] 1.025 (1.001-1.035) Urine Protein 1+ (Negative) H Urine Ketones Negative (Negative) Urine Blood 3+ /uL (Negative) H Urine Nitrite Negative (Negative) Urine Bilirubin Negative (Negative) Urine Urobilinogen 4 mg/dL (Negative) H Urine Leukocyte Esterase Trace /uL (Negative) Urine RBC 708 /hpf (0 - 4) Urine Microscopic WBC 24 /HPF (0-5) H Urine Squamous Epithelial Cells Few /hpf (<5) Urine Bacteria None seen /hpf (None Seen) Urine Mucus Few (None Seen) Urine Glucose Normal mg/dL (Normal) Microbiology Microbiology Date/Time Source Procedure Growth Status 11/24/24 03:30 Urine - [place] Urine Culture - Final Complete Assessment/Plan Assessment/Plan #1 hepatic encephalopathy: Continue lactulose #2 h/o breast cancer #3 obesity #4 htn #5 thrombocytopenia #6 LUBA on CKD stage 3 baseline creat 1.1 Creat trending up 1.4>1.59>1.58>1.4>1.5>1.3 #7 hypernatremia: resolved now #8 liver cirrhosis ?metabolic Continuing current management. We will repeat the BUN creatinine in a.m.. Discharge planning. DEREK ORANTES MD Dec 04, 2024 11:37
[2024-12-04 12:45] VITALS: BP 110/41; PULSE 54; RESP 16; TEMP 97.6; O2SAT 97
[2024-12-04 13:41] VITALS: BP 124/52; PULSE 51; RESP 16; TEMP 98; O2SAT 98
== END 2024-12-04 15:26 | disposition home or self-care (01) | DRG 441 ==
LOC: ER 19:26 → OVERFLOW 23:44 → CENTRAL 11-23 04:30
PROVIDERS: ADMIT Internal Medicine; ATTEND Internal Medicine
DX: K76.82 Hepatic encephalopathy (principal); G93.41 Metabolic encephalopathy; N17.0 Acute kidney failure with tubular necrosis; E87.0 Hyperosmolality and hypernatremia; D69.6 Thrombocytopenia, unspecified; K74.60 Unspecified cirrhosis of liver; E66.9 Obesity, unspecified; E11.22 Type 2 diabetes mellitus with diabetic chronic kidney disease; N18.30 Chronic kidney disease, stage 3 unspecified; E66.01 Morbid (severe) obesity due to excess calories; Z68.34 Body mass index [BMI] 34.0-34.9, adult; I12.9 Hypertensive chronic kidney disease with stage 1 through stage 4 chronic kidney disease, or unspecified chronic kidney disease; K80.20 Calculus of gallbladder without cholecystitis without obstruction; Z85.3 Personal history of malignant neoplasm of breast; Z87.01 Personal history of pneumonia (recurrent); Z90.11 Acquired absence of right breast and nipple; Z86.16 Personal history of COVID-19
CPT/HCPCS: 36415; 70450; 71045; 76705; 80048; 80053; 80074; 81001; 82140; 82962; 83690; 85025; 85610; 85730; 87086; 93306; 96360; 97110; 97116; 97163; 97530; G0378; J2003; J2470; J3490

== ENCOUNTER 2024-12-29 10:57 | Outpatient (CLI) | payer MEDICARE ==
[2024-12-29 11:36] LABS: Hematocrit 34.4 % (36.0-46.0); Hemoglobin 11.4 g/dL (12.2-16.2); Mean Corpuscular Hemoglobin 36.5 pg (28.0-32.0); Mean Corpuscular Volume 110.5 fL (80.0-100.0); Nucleated Red Blood Cells % 0.0 %
[2024-12-29 11:59] LABS: Albumin 3.7 g/dL (3.2-4.8); Anion Gap 10 (5-15); BUN/Creatinine Ratio 9.1 (10.0-20.0); Blood Urea Nitrogen 10 mg/dL (9-23); Calcium 10.0 mg/dL (8.7-10.4); Carbon Dioxide 24 mmol/L (20-31); Chloride 106 mmol/L (98-107); Cholesterol 138 mg/dL (< 200); Glucose 89 mg/dL (74-106); Potassium 4.1 mmol/L (3.5-5.1); Sodium 140 mmol/L (136-145); Total Protein 7.0 g/dL (5.7-8.2); Triglycerides 143 mg/dL (< 150)
[2024-12-29 12:00] LABS: Alanine Aminotransferase 66 U/L (7-40); Alkaline Phosphatase 267 U/L (46-116)
[2024-12-29 12:01] LABS: Bilirubin, Total 1.9 mg/dL (0.2-1.0); HDL Cholesterol 41 mg/dL (40-59)
[2024-12-29 12:02] LABS: Macrocytosis Slight
[2024-12-30 09:14] LABS: Urine Protein, UAD Negative (Negative)
== END 2024-12-29 17:00 | disposition home or self-care (01) ==
LOC: LAB 10:57
PROVIDERS: ATTEND Internal Medicine
DX: Z00.01 Encounter for general adult medical examination with abnormal findings (principal); Z79.899 Other long term (current) drug therapy
CPT/HCPCS: 36415; 80053; 80061; 81001; 82607; 83036; 84443; 85025

== ENCOUNTER 2025-03-02 12:00 | Outpatient (CLI) | payer MEDICARE | END 2025-03-02 17:00 | disposition home or self-care (01) | LOC: LAB 12:00 | PROVIDERS: ATTEND Internal Medicine | DX: Z12.11 Encounter for screening for malignant neoplasm of colon (principal) | CPT/HCPCS: 82274 ==

== ENCOUNTER 2025-05-03 13:40 | Outpatient (CLI) | payer MEDICARE ==
[2025-05-03 14:14] LABS: Hematocrit 35.2 % (36.0-46.0); Hemoglobin 12.0 g/dL (12.2-16.2)
[2025-05-03 14:16] LABS: Mean Corpuscular Hemoglobin 37.1 pg (28.0-32.0); Mean Corpuscular Volume 108.7 fL (80.0-100.0); Nucleated Red Blood Cells % 0.0 %
[2025-05-03 14:34] LABS: Alanine Aminotransferase 30 U/L (7-40); Albumin 3.9 g/dL (3.2-4.8); Anion Gap 9 (5-15); BUN/Creatinine Ratio 10.9 (10.0-20.0); Blood Urea Nitrogen 11 mg/dL (9-23); Calcium 9.2 mg/dL (8.7-10.4); Carbon Dioxide 26 mmol/L (20-31); Chloride 107 mmol/L (98-107); Glucose 89 mg/dL (74-106); Potassium 4.3 mmol/L (3.5-5.1); Sodium 142 mmol/L (136-145); Total Protein 7.6 g/dL (5.7-8.2)
[2025-05-03 14:35] LABS: Alkaline Phosphatase 142 U/L (46-116); Bilirubin, Total 1.6 mg/dL (0.2-1.0); Cholesterol 226 mg/dL (< 200); HDL Cholesterol 64 mg/dL (40-59); Triglycerides 155 mg/dL (< 150)
[2025-05-03 15:27] LABS: Iron 120.0 ug/dL (50-170)
[2025-05-03 15:29] LABS: Total Iron Binding Capacity 269.0 ug/dL (250-425)
== END 2025-05-03 17:00 | disposition home or self-care (01) ==
LOC: LAB 13:40
PROVIDERS: ATTEND Licensed Practical Nurse
DX: E78.5 Hyperlipidemia, unspecified (principal); K76.82 Hepatic encephalopathy; Z13.1 Encounter for screening for diabetes mellitus
CPT/HCPCS: 36415; 80053; 80061; 82043; 82728; 83036; 83540; 83550; 85025